=== PATIENT | female | born 1985 | race Caucasian/White ===

== ENCOUNTER 2017-08-14 12:40 | Emergency (ER) | payer BC, MEDICAID ==
--- NOTE | 2017-08-14 12:51 | ED Physician Documentation ---
PD HPI OVERDOSE - Stated complaint Stated Complaint: OVERDOSE - Chief complaint Chief Complaint: MHE - History obtained from History obtained from: Patient - History of Present Illness Timing - onset: How many hours ago (1 /2), Today Subtance(s) ingested: Single (benzo, took about 8 mgs Xanax (10-17 of 0.5 mg tabs).), Benzo (these were not her medications, she took pills belonging to a friend, who calls [facility] here in the ED to report it as a theft.). No: EtOH Associated symptoms: Decreased responsiveness. No: Resp depression, Resp arrest Contributing factors: Depresssed (she says she was stressed and wanted to sleep for a day or so, took extra of them "but not the whole bottle, just enough to sleep a long time". She denies suicidality. She then was concerned about taking too many so called for help.). No: Suicidal, Accidental, Substance abuse Similar symptoms before: Has not had sx before Recently seen: Not recently seen Review of Systems Constitutional: denies: Fever Nose: denies: Rhinorrhea / runny nose, Congestion Throat: denies: Sore throat Cardiac: denies: Chest pain / pressure, Palpitations Respiratory: denies: Dyspnea, Cough, Wheezing GI: denies: Nausea, Vomiting, Diarrhea Neurologic: denies: Altered mental status, Headache, Head injury PD PAST MEDICAL HISTORY - Past Medical History Cardiovascular: None Respiratory: None Neuro: None Endocrine/Autoimmune: None PRODUCTION FLOATER: Endometriosis Psych: Depression, Anxiety - Past Surgical History Past Surgical History: Yes /PRODUCTION FLOATER: Oophrectomy HEENT: Tonsil/Adenoidectomy - Present Medications Home Medications: Ambulatory Orders Medication Instructions Recorded Confirmed No Known Home Medications [No 08/14/17 08/14/17 Known Home Medications] - Allergies Allergies/Adverse Reactions: Allergies Allergy/AdvReac Type Severity Reaction Status Date / Time No Known Drug Allergies Allergy Verified 08/14/17 12:45 - Social History Does the pt smoke?: No Smoking Status: Never smoker Does the pt drink ETOH?: No Does the pt have substance abuse?: No - Immunizations Immunizations are current?: Yes - POLST Patient has POLST: No PD ED PE NORMAL - Vitals Vital signs reviewed: Yes (good oxygen sats. ) - General General: No: Alert and oriented X 3 (sleepy bout rousable to tactile stimulus. Gag reflex present. ) - HEENT HEENT: Ears normal, Pharynx benign - Neck Neck: Supple, no meningeal sign, No adenopathy - Cardiac Cardiac: RRR, No murmur - Respiratory Respiratory: Clear bilaterally - Abdomen Abdomen: Soft, Non tender - Derm Derm: Normal color, Warm and dry - Extremities Extremities: No tenderness to palpate, Normal ROM s pain, No edema, No calf tenderness / cord - Psych Psych: No: Normal mood (depressed) Results - Vitals Vitals: Oxygen O2 Source Room air - EKG (time done) 12:00 Rate: Rate (enter#) (81) Rhythm: NSR [place]: Normal Intervals: Normal PA QRS: Normal Ischemia: Normal ST segments. No: ST elevation c/w ischemia, ST depression - Labs Labs: Laboratory Tests 08/14/17 08/14/17 08/14/17 14:30 14:30 14:30 WBC 8.1 RBC 4.39 Hgb 10.7 L Hct 32.9 L MCV 75.0 L MCH 24.5 L MCHC 32.6 RDW 17.3 H Plt Count 299 MPV 8.3 Neut # 5.1 Lymph # 2.4 [place] # 0.5 Eos # 0.1 Baso # 0.1 Absolute Nucleated RBC 0.00 Nucleated RBC % 0.0 Sodium 134 L Potassium 3.3 L Chloride 103 Carbon Dioxide 22 Anion Gap 9.0 BUN 9 Creatinine 0.4 Estimated GFR (MDRD) 185 Glucose 85 Calcium 8.7 Total Bilirubin 0.4 AST 15 ALT 15 Alkaline Phosphatase 33 L Total Protein 6.9 Albumin 3.8 Globulin 3.1 Albumin/Globulin Ratio 1.2 Lipase 14 L TSH 0.16 L Urine Color Urine Clarity Urine pH Ur Specific [place] Urine Protein Urine Glucose (UA) Urine Ketones Urine Occult Blood Urine Nitrite Urine Bilirubin Urine Urobilinogen Ur Leukocyte Esterase Ur Microscopic Review Urine Culture Comments Urine HCG, Qual Salicylates < 6.0 Urine Opiates Screen Ur Oxycodone Screen Urine Methadone Screen Ur Propoxyphene Screen Acetaminophen < 10 L Ur Barbiturates Screen Ur Tricyclics Screen Ur Phencyclidine Scrn Ur Amphetamine Screen U Methamphetamines Scrn U Benzodiazepines Scrn Urine Cocaine Screen U Cannabinoids Screen Ethyl Alcohol < 5.0 08/14/17 08/14/17 17:49 17:49 WBC RBC Hgb Hct MCV MCH MCHC RDW Plt Count MPV Neut # Lymph # [place] # Eos # Baso # Absolute Nucleated RBC Nucleated RBC % Sodium Potassium Chloride Carbon Dioxide Anion Gap BUN Creatinine Estimated GFR (MDRD) Glucose Calcium Total Bilirubin AST ALT Alkaline Phosphatase Total Protein Albumin Globulin Albumin/Globulin Ratio Lipase TSH Urine Color YELLOW Urine Clarity CLEAR Urine pH 6.0 Ur Specific [place] 1.015 Urine Protein NEGATIVE Urine Glucose (UA) NEGATIVE Urine Ketones NEGATIVE Urine Occult Blood NEGATIVE Urine Nitrite NEGATIVE Urine Bilirubin NEGATIVE Urine Urobilinogen 0.2 (NORMAL) Ur Leukocyte Esterase NEGATIVE Ur Microscopic Review NOT INDICATED Urine Culture Comments NOT INDICATED Urine HCG, Qual POSITIVE Salicylates Urine Opiates Screen NEGATIVE Ur Oxycodone Screen NEGATIVE Urine Methadone Screen NEGATIVE Ur Propoxyphene Screen NEGATIVE Acetaminophen Ur Barbiturates Screen NEGATIVE Ur Tricyclics Screen NEGATIVE Ur Phencyclidine Scrn NEGATIVE Ur Amphetamine Screen POSITIVE H U Methamphetamines Scrn POSITIVE H U Benzodiazepines Scrn POSITIVE H Urine Cocaine Screen NEGATIVE U Cannabinoids Screen NEGATIVE Ethyl Alcohol PD MEDICAL DECISION MAKING - ED course Complexity details: considered differential (was not intending suicide. [place] stressed and wanted to "check out for a day". She did not get overly sedated, kept good oygenation and gag reflex. Slept awhile and then roused enough to be able to walk to bathroom/etc. SW talked with her and gave information for counseling groups for her to deal with stress differently. ), d/w patient Departure - Departure Disposition: 01 Home, Self Care Clinical Impression: Depression Qualifiers: Depression Type: unspecified Qualified Code(s): F32.9 - Major depressive disorder, single episode, unspecified Medication overdose Qualifiers: Encounter type: initial encounter Injury intent: undetermined intent Qualified Code(s): T50.904A - Poisoning by unspecified drugs, medicaments and biological substances, undetermined, initial encounter Clinical Impression: (Ruled Out): Suicidal ideation Condition: Stable Record reviewed to determine appropriate education?: Yes Instructions: ED Stress React, ED Depression, ED Overdose Intentional Follow-Up: Anahi Manzano MD [Primary Care Provider] - [facility] [Provider Group] Comments: Drink lots of fluids and stay well-hydrated. No medications beyond those prescribed for you. Call the counseling resource numbers provided by social work to set up counseling. He can call the crisis line if needed as well if you need someone to talk to acutely. Discharge Date/Time: 08/14/17 18:39
[2017-08-14] MEDS ORDERED: SODIUM CHLORIDE 0.9% 1,000 ML IV ONE (13:14)
[2017-08-14 14:37] LABS: BASOPHILS # (AUTO) 0.1 10^3/uL (0.0-0.1); BASOPHILS % (AUTO) 0.9 %; EOSINOPHILS # (AUTO) 0.1 10^3/uL (0.0-0.7); EOSINOPHILS % (AUTO) 0.9 %; HGB - HEMOGLOBIN 10.7 g/dL (12.0-16.0); LYMPHOCYTES # (AUTO) 2.4 10^3/uL (1.5-3.5); LYMPHOCYTES % (AUTO) 29.9 %; MEAN CORPUSCULAR HEMOGLOBIN 24.5 pg (27.0-31.0); MEAN CORPUSCULAR HGB CONC 32.6 g/dL (32.0-36.0); MEAN PLATELET VOLUME 8.3 fL (7.9-10.8); MONOCYTES # (AUTO) 0.5 10^3/uL (0.0-1.0); MONOCYTES % (AUTO) 5.7 %; NEUTROPHILS # (AUTO) 5.1 10^3/uL (1.5-6.6); NEUTROPHILS % (AUTO) 62.6 %; PLT - PLATELET COUNT 299 10^3/uL (130-450); RED BLOOD COUNT 4.39 10^6/uL (4.20-5.40); RED CELL DISTRIBUTION WIDTH 17.3 % (12.0-15.0); WHITE BLOOD COUNT 8.1 x10^3/uL (4.8-10.8)
[2017-08-14 14:51] LABS: ALBUMIN 3.8 g/dL (3.2-5.5); ALBUMIN/GLOBULIN RATIO 1.2 (1.0-2.2); ALKALINE PHOSPHATASE 33 IU/L (42-121); ALT ALANINE AMINOTRANSFERASE 15 IU/L (10-60); AST ASPARTATE AMINOTRANSFERASE 15 IU/L (10-42); BILIRUBIN,TOTAL 0.4 mg/dL (0.2-1.0); BUN - BLOOD UREA NITROGEN 9 mg/dL (6-20); CALCIUM 8.7 mg/dL (8.5-10.3); CARBON DIOXIDE - CO2 22 mmol/L (21-32); CHLORIDE 103 mmol/L (101-111); CREATININE 0.4 mg/dL (0.4-1.0); GFR - MDRD 185 (>89); GLUCOSE 85 mg/dL (70-100); LIPASE 14 U/L (22-51); SALICYLATE < 6.0 mg/dL; SODIUM 134 mmol/L (135-145); TOTAL PROTEIN 6.9 g/dL (6.7-8.2)
[2017-08-14 14:52] LABS: ACETAMINOPHEN < 10 ug/mL (10-30)
[2017-08-14 17:36] VITALS: BP 114/62
[2017-08-14 17:53] LABS: MUDS CUTOFF CONCENTRATIONS CUTOFF CONC BELOW:
[2017-08-14 17:56] LABS: BILIRUBIN,URINE NEGATIVE (NEGATIVE); GLUCOSE, URINE (UA) NEGATIVE (NEGATIVE); KETONES,URINE (UA) NEGATIVE (NEGATIVE); LEUKOCYTE ESTERASE, URINE NEGATIVE (NEGATIVE); NITRITE,URINE NEGATIVE (NEGATIVE); OCCULT BLOOD,URINE NEGATIVE (NEGATIVE); PROTEIN,URINE NEGATIVE (NEGATIVE); UROBILINOGEN,URINE 0.2 (NORMAL) E.U./dL (NORMAL)
[2017-08-14 17:59] LABS: CLARITY,URINE CLEAR (CLEAR)
[2017-08-14 18:06] LABS: COCAINE SCREEN URINE NEGATIVE (NEGATIVE)
[2017-08-14 18:08] LABS: AMPHETAMINE SCREEN,URINE POSITIVE (NEGATIVE); BENZODIAZEPINES SCREEN, URINE POSITIVE (NEGATIVE); METHADONE SCREEN, URINE NEGATIVE (NEGATIVE); METHAMPHETAMINES SCREEN, URINE POSITIVE (NEGATIVE); OPIATE SCREEN, URINE NEGATIVE (NEGATIVE); OXYCODONE SCREEN, URINE NEGATIVE (NEGATIVE); PROPOXYPHENE SCREEN, URINE NEGATIVE (NEGATIVE); TRICYCLIC ANTIDEPRESSANT,URINE NEGATIVE (NEGATIVE)
[2017-08-14 18:09] LABS: HCG UR QUAL POSITIVE
== END 2017-08-14 18:39 | disposition home or self-care (01) ==
LOC: ED 12:40
DX: F32.9 Major depressive disorder, single episode, unspecified (principal); T42.4X4A Poisoning by benzodiazepines, undetermined, initial encounter
CPT/HCPCS: 36415; 80053; 80306; 80307; 80320; 80329; 81001; 81003; 81025; 83690; 84443; 85025; 87086; 93005; 99283; 99284

== ENCOUNTER 2017-12-31 01:54 | Emergency (ER) | payer MEDICAID ==
--- NOTE | 2017-12-31 02:12 | ED Physician Documentation ---
History of Present Illness - Stated complaint Stated Complaint: L LEG PAIN - Chief complaint Chief Complaint: Ext Problem - History obtained from History obtained from: Patient - History of Present Illness Timing: How many days ago (2-3) Pain level now: 3 Improved by: rest Worsened by: movement, palpation - Additonal information Additional information: c/o few days of LLE pain, swelling without injury. 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 SLEEPING CAR: Endometriosis Psych: Depression, Anxiety - Past Surgical History Past Surgical History: Yes /CONDUCTOR SLEEPING CAR: Oophrectomy HEENT: Tonsil/Adenoidectomy - Present Medications Home Medications: Ambulatory Orders Medication Instructions Recorded Confirmed No Known Home Medications [No 08/14/17 12/31/17 Known Home Medications] - Allergies Allergies/Adverse Reactions: Allergies Allergy/AdvReac Type Severity Reaction Status Date / Time No Known Drug Allergies Allergy Verified 12/31/17 02:06 - Social History Does the pt smoke?: No Smoking Status: Never smoker Does the pt drink ETOH?: No Does the pt have substance abuse?: No - Immunizations Immunizations are current?: Yes - POLST Patient has POLST: No PD ED PE NORMAL - Vitals Vital signs reviewed: Yes - General General: Alert and oriented X 3, No acute distress, Well developed/nourished - Respiratory Respiratory: No respiratory distress, Clear bilaterally PD ED PE EXPANDED - Extremities Extremities: Pedal edema L (mild with faint erythema lateral aspect lower leg with poor margination, nontender) Results - Vitals Vitals: Vital Signs - 24 hr 12/31/17 12/31/17 02:00 04:40 Temperature 36.5 C Heart Rate 95 82 Respiratory 18 16 Rate Blood Pressure 123/62 123/71 O2 Saturation 100 99 Oxygen O2 Source Room air - Rads (name of study) LLE US Radiology: Prelim report reviewed, See rad report PD MEDICAL DECISION MAKING - ED course Complexity details: reviewed results, re-evaluated patient, considered differential, d/w patient - Sepsis Event Vital Signs: Vital Signs - 24 hr 12/31/17 12/31/17 02:00 04:40 Temperature 36.5 C Heart Rate 95 82 Respiratory 18 16 Rate Blood Pressure 123/62 123/71 O2 Saturation 100 99 Oxygen O2 Source Room air Departure - Departure Disposition: 01 Home, Self Care Clinical Impression: Superficial thrombophlebitis Condition: Good Instructions: ED Phlebitis Superficial Comments: Follow up with your primary care provider within 1-2 weeks for recheck of your leg. Discharge Date/Time: 12/31/17 04:40
--- NOTE | 2017-12-31 04:02 | Ultrasound Report ---
Procedure Date: 12/31/2017 Accession Number: [id number] / [id number] Procedure: US - Duplex Ext Veins Left CPT Code: FULL RESULT: EXAM: LEFT LOWER EXTREMITY VENOUS ULTRASOUND EXAM DATE: 12/31/2017 03:52 AM. CLINICAL HISTORY: Pain, swelling. COMPARISON: None. TECHNIQUE: Real-time sonographic vascular imaging was performed by the patient accounting representative through the lower extremity utilizing both color-flow and Doppler spectral analysis. Multiple digital media representative static images were saved for review. FINDINGS: Common Femoral Vein (CFV): Normal. CFV-GSV Junction: Normal. Profunda Femoral Vein (PFV): Normal. Femoral Vein (FV) Prox: Normal. Femoral Vein (FV) Mid: Normal. Femoral Vein (FV) Dist: Normal. Popliteal Vein: Normal. Posterior Tibial Veins: Normal. Peroneal Veins: Normal. Other: Thrombosed superficial varicosity in the lateral calf. IMPRESSION: 1. No evidence for deep venous thrombosis. 2. Thrombosed superficial varicosity at the palpable area in the lateral calf. RADIA
[2017-12-31 04:41] VITALS: BP 123/71
== END 2017-12-31 04:40 | disposition home or self-care (01) ==
LOC: ED 01:54
DX: I80.02 Phlebitis and thrombophlebitis of superficial vessels of left lower extremity (principal); I83.892 Varicose veins of left lower extremity with other complications
CPT/HCPCS: 99282; 99283

== ENCOUNTER 2018-02-22 01:03 | Outpatient (CLI) | payer MEDICAID | END 2018-02-22 01:04 | disposition critical access hospital (66) | LOC: EMS 01:03 | PROVIDERS: ATTEND Surgery | DX: O99.89 Other specified diseases and conditions complicating pregnancy, childbirth and the puerperium (principal) | CPT/HCPCS: A0425; A0429; A0999 ==

== ENCOUNTER 2018-02-22 01:36 | Inpatient (IN) | payer MEDICAID ==
[2018-02-22] MEDS ORDERED: OXYTOCIN/SODIUM CHLORIDE 500 ML IV ONE (01:48)
[2018-02-22] MEDS ORDERED: OXYTOCIN/SODIUM CHLORIDE 250 ML IV ONE (02:17)
[2018-02-22 02:47] LABS: ALBUMIN 2.4 g/dL (3.2-5.5); ALBUMIN/GLOBULIN RATIO 0.8 (1.0-2.2); BILIRUBIN,TOTAL 0.5 mg/dL (0.2-1.0); CALCIUM 8.5 mg/dL (8.5-10.3); CREATININE 0.5 mg/dL (0.4-1.0); TOTAL PROTEIN 5.6 g/dL (6.7-8.2)
[2018-02-22 02:51] LABS: BASOPHILS # (AUTO) 0.1 10^3/uL (0.0-0.1); BASOPHILS % (AUTO) 0.5 %; EOSINOPHILS % (AUTO) 0.3 %; HGB - HEMOGLOBIN 8.3 g/dL (12.0-16.0); LYMPHOCYTES # (AUTO) 2.1 10^3/uL (1.5-3.5); LYMPHOCYTES % (AUTO) 19.4 %; MEAN CORPUSCULAR HEMOGLOBIN 19.4 pg (27.0-31.0); MEAN CORPUSCULAR VOLUME 62.7 fL (81.0-99.0); MEAN PLATELET VOLUME 9.3 fL (7.9-10.8); MONOCYTES # (AUTO) 0.4 10^3/uL (0.0-1.0); MONOCYTES % (AUTO) 3.8 %; NEUTROPHILS # (AUTO) 8.1 10^3/uL (1.5-6.6); PLT - PLATELET COUNT 230 10^3/uL (130-450); RED BLOOD COUNT 4.25 10^6/uL (4.20-5.40); WHITE BLOOD COUNT 10.7 x10^3/uL (4.8-10.8)
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
[2018-02-22] MEDS ORDERED: HYDROCORTISONE/PRAMOXINE 10 GM PR PRN (03:27)
[2018-02-22] MEDS ORDERED: ONDANSETRON ODT 4 MG TABLET TL PRN (03:27)
[2018-02-22] MEDS ORDERED: WITCH HAZEL/GLYCERIN 1 EACH MED..PAD TOP PRN (03:27)
[2018-02-22 03:34] LABS: PLATELET ESTIMATE, MANUAL NORMAL (130-450,000) (NORMAL)
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
[2018-02-22] MEDS ORDERED: LACTATED RINGERS 1,000 ML IV SCH (04:00)
[2018-02-22] MEDS: IBUPROFEN 600 MG TABLET PO PRN ×3 (04:08→21:41)
[2018-02-22] MEDS ORDERED: SIMETHICONE CHEW 80 MG TABLET PO SCH (06:00)
[2018-02-22 06:04] LABS: MUDS CUTOFF CONCENTRATIONS CUTOFF CONC BELOW:
[2018-02-22 06:17] LABS: AMPHETAMINE SCREEN,URINE POSITIVE (NEGATIVE); BENZODIAZEPINES SCREEN, URINE NEGATIVE (NEGATIVE); COCAINE SCREEN URINE NEGATIVE (NEGATIVE); METHADONE SCREEN, URINE NEGATIVE (NEGATIVE); METHAMPHETAMINES SCREEN, URINE POSITIVE (NEGATIVE); OPIATE SCREEN, URINE NEGATIVE (NEGATIVE); OXYCODONE SCREEN, URINE NEGATIVE (NEGATIVE); PROPOXYPHENE SCREEN, URINE NEGATIVE (NEGATIVE); TRICYCLIC ANTIDEPRESSANT,URINE NEGATIVE (NEGATIVE)
[2018-02-22 07:12] LABS: CREATININE,URINE 90.1 mg/dL; MICROALBUM/CREATININE RATIO,UR 3633.7 ug/mg (<30.0); MICROALBUMIN,URINE 327.4 mg/dL (0-300.0)
[2018-02-22 08:47] LABS: CREATININE,URINE 84.6 mg/dL; PROTEIN/CREATININE RATIO,URINE 5.8 (<=0.2)
[2018-02-22] MEDS ORDERED: MAGNESIUM SULFATE 1 GM/2 ML VIAL IVP PRN (09:54)
[2018-02-22] MEDS ORDERED: MAGNESIUM SULFATE 2 GRAM 2 GM/50 ML BAG IV PRN (10:12)
[2018-02-22] MEDS: DOCUSATE SODIUM 100 MG CAPSULE PO SCH ×2 (10:15→21:41)
[2018-02-22 11:49] LABS: CALCIUM 8.3 mg/dL (8.5-10.3); CREATININE 0.5 mg/dL (0.4-1.0)
[2018-02-22 11:52] LABS: BASOPHILS # (AUTO) 0.1 10^3/uL (0.0-0.1); BASOPHILS % (AUTO) 0.8 %; EOSINOPHILS % (AUTO) 0.2 %; HGB - HEMOGLOBIN 7.9 g/dL (12.0-16.0); LYMPHOCYTES # (AUTO) 2.8 10^3/uL (1.5-3.5); LYMPHOCYTES % (AUTO) 21.4 %; MEAN CORPUSCULAR HEMOGLOBIN 19.1 pg (27.0-31.0); MEAN CORPUSCULAR HGB CONC 30.8 g/dL (32.0-36.0); MEAN CORPUSCULAR VOLUME 62.2 fL (81.0-99.0); MEAN PLATELET VOLUME 9.4 fL (7.9-10.8); MONOCYTES # (AUTO) 0.5 10^3/uL (0.0-1.0); MONOCYTES % (AUTO) 4.2 %; NEUTROPHILS # (AUTO) 9.4 10^3/uL (1.5-6.6); NEUTROPHILS % (AUTO) 73.4 %; PLT - PLATELET COUNT 225 10^3/uL (130-450); RED BLOOD COUNT 4.15 10^6/uL (4.20-5.40); RED CELL DISTRIBUTION WIDTH 20.3 % (12.0-15.0); WHITE BLOOD COUNT 12.8 x10^3/uL (4.8-10.8)
[2018-02-22 12:25] LABS: PLATELET MORPHOLOGY NORMAL APPEARANCE (NORMAL)
[2018-02-22 12:26] LABS: PLATELET ESTIMATE, MANUAL NORMAL (130-450,000) (NORMAL)
[2018-02-22 12:29] LABS: ALBUMIN 2.2 g/dL (3.2-5.5); BILIRUBIN,DIRECT 0.1 mg/dL (0.1-0.5); BILIRUBIN,TOTAL 0.3 mg/dL (0.2-1.0); TOTAL PROTEIN 5.4 g/dL (6.7-8.2)
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
[2018-02-22 13:55] LABS: MEAN RETIC VALUE 95.4; RED BLOOD COUNT 4.14 10^6/uL (4.20-5.40)
[2018-02-22 14:07] LABS: FERRITIN 11.3 ng/mL (11.0-306.8)
[2018-02-22 14:11] LABS: FOLATE 14.73 ng/mL (5.90 - >24.8)
--- NOTE | 2018-02-22 14:12 | CONSULTATION NOTE ---
Referring Provider Name of Referring Provider:: Dr. Mary Ann Mota Consult Date: 02/22/18 Chief Complaint - Chief Complaint Chief Complaint: anemia History of Present Illness - History Obtained From History obtained from: pt - History of Present Illness HPI Comment/Other: Ms. 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 Pt's HGB was 8.3 at admission, pt's HGB is 7.9 after she delivered child. Pt report she had hx of chronic anemia, and usually her HGB is around 10. She reported she took iron pill at home. She denies shortness of breath, chest pain, palpitation, pre-syncope or syncope. She denies GI bleed prior to her this time deliver. Pt also has slight elevated WBC 12.8 today and 10.8 in the admission time. Pt denies dysuria, cough, fever, chill, and any skin infection, abdominal pain, diarrhea. Pt report she did have some kind of chronic right ear infection, and slight elevated WBC in the past. pt denies ear pain, hearing loss. 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: reports: Endometriosis Psych: reports: Depression, Anxiety MRSA Hx?: No - Past Surgical History /COLLEGE ADMINISTRATOR: reports: Oophrectomy HEENT: reports: Tonsil/Adenoidectomy - POLST Patient has POLST: No Meds/Allgy - Home Medications Home Medications: Ambulatory Orders Medication Instructions Recorded Confirmed No Known Home Medications 08/14/17 12/31/17 - Allergies Allergies/Adverse Reactions: Allergies Allergy/AdvReac Type Severity Reaction Status Date / Time No Known Drug Allergies Allergy Verified 12/31/17 02:06 Review of Systems - Constitutional Constitutional: denies: Fatigue, Fever, Chills, Malaise, Weakness, Poor appetite, Diaphoresis, Night sweats - Eyes Eyes: denies: Pain, Irritation, Amaurosis, Blurred vision, Spots in vision, Field loss, Vision loss, Dipolpia, Corrective lenses - Ears, Nose & Throat Ears, Nose & Throat: denies: Ear pain, Hearing loss, Hearing aids, Tinnitus, Vertigo, Nasal pain, Nasal discharge, Nosebleeds, Nasal obstruction, Nasal congestion, Postnasal drainage, Dentures, Sore throat, Hoarseness, Mouth lesions - Cardiovascular Cariovascular: denies: Irregular heart rate, Palpitations, Chest pain, Edema, Lightheadedness, Syncope, Exertional dyspnea, Decr. exercise tolerance - Respiratory Respiratory: denies: Cough, Sputum production, Wheezing, Snoring, Hemoptysis, Orthopnea, SOB at rest, SOB with exertion - Gastrointestinal Gastrointestinal: denies: Abdominal pain, Abdominal distention, Constipation, Diarrhea, Change in bowel habits, Rectal bleeding, Black stools, Bloody stools, Nausea, Vomiting, Bile emesis, Esa blood emesis, Coffee grounds emesis, Reflux/heartburn - Genitourinary Genitourinary: denies: Dysuria, Frequency, Urgency, Hematuria, Incontinence, Flank pain, Nocturia, Urethral discharge - Musculoskeletal Musculoskeletal: denies: Muscle pain, Back pain, Muscle aches, Stiffness, Limited range of motion, Muscle weakness, Gout, Joint pain - Integumentary Integumentary: denies: Rash, Pruritis, Lesions, Dryness, Lumps, Acne, Pigment changes, Nail changes - Neurological Neurological: denies: General weakness, Focal weakness, Headache, Dizziness, Numbness, Memory problems, Pre-existing deficit, Abnormal gait, Seizures, Incoordination, Slurred speech - Psychiatric Psychiatric: denies: Depression, Anxiety, Suicidal, Delusions, Hallucinations, Homicidal - Endocrine Endocrine: denies: Polyuria, Polydypsia, Polyphagia, Intolerance to cold - Hematologic/Lymphatic Hematologic/Lymphatic: reports: Anemia. denies: Bruising, Petechiae, Blood clots, Lymphadenopathy, Bleeding tendencies, Recurrent infections Exam - Vital Signs Reviewed Vital Signs: Yes Vital Signs: Vital Signs x48h Temp Pulse Resp BP Pulse Ox 02/22/18 13:30 37.1 C 61 16 126/60 99 02/22/18 10:53 91 16 131/77 H 99 02/22/18 08:50 36.7 C 73 18 125/79 100 02/22/18 06:21 36.5 C 60 16 136/76 H - Physical Exam General Appearance: negative: No acute distress, Alert, Lethargic Eyes Bilateral: positive: Normal inspection, PERRL. negative: No lid inflammation, Conjunctivae nml ENT: positive: ENT inspection nml, Pharynx nml, No signs of dehydration. negative: Purulent nasal drainage, Pharyngeal erythema, Oral lesions Neck: positive: Nml inspection, Thyroid nml, No JVD, Trachea midline. negative: Thyromegaly, Lymphadenopathy (R), Lymphadenopathy (L), Stiff neck, Swelling/bruising, Tracheal deviation Respiratory: positive: Chest non-tender, No respiratory distress, Breath sounds nml. negative: Wheezes, Rales, Rhonchi Cardiovascular: positive: Regular rate & rhythm, No murmur, No gallop. negative: Irregularly irregular, Extrasystoles, Tachycardia, Bradycardia, JVD present, Systolic murmur, Diastolic murmur Peripheral Pulses: positive: 2+ Abdomen: positive: Non-tender, No organomegaly, Nml bowel sounds, No distention. negative: Tenderness, Guarding, Rebound Back: positive: Nml inspection. negative: CVA tenderness (R), CVA tenderness (L) Skin: positive: Color nml, No rash, Warm, Dry. negative: Cyanosis, Diaphoresis, Pallor, Skin rash Extremities: positive: Non-tender, Full ROM, Nml appearance. negative: Calf tenderness, Joint swelling, Bo's sign/cords Neurologic/Psychiatric: positive: Oriented x3, Motor nml, Sensation nml, Mood/affect nml. negative: Weakness, Sensory loss, Facial droop, Slurred/abnml speech, Depressed mood/affect Conclusion/Plan - Plan Plan: 1, anemia MCV is 63, it appear iron deficiency, plus mild acute blood loss from child deliver will order iron study, followup start iron pill, pt took at home before H&H, pt has child deliver today 2, slight elevated WBC pt report she had chronic slight elevated WBC, plus pt's child deliver distress. pt denies fever, chill, cough, SOB, dysuria. continue lab monitor, followup - Lab Results Fish Bones: 02/22/18 11:30 02/22/18 11:30
[2018-02-22 14:27] LABS: % IRON SATURATION 6 % (20-50); IRON 33 ug/dL (28-170); TOTAL IRON BINDING CAPACITY 578 ug/dL (250-450); TRANSFERRIN 413 mg/dL (192-382)
[2018-02-22] MEDS ORDERED: FERROUS SULFATE 325 MG TABLET PO SCH (17:00)
[2018-02-22] MEDS ORDERED: CABERGOLINE 0.5 MG TABLET PO ONE (17:33)
[2018-02-22 19:06] LABS: HGB - HEMOGLOBIN 7.6 g/dL (12.0-16.0)
[2018-02-23] MEDS: IBUPROFEN 600 MG TABLET PO PRN (04:26)
[2018-02-23 06:17] LABS: ALBUMIN 2.1 g/dL (3.2-5.5); ALBUMIN/GLOBULIN RATIO 0.7 (1.0-2.2); ALKALINE PHOSPHATASE 98 IU/L (42-121); ALT ALANINE AMINOTRANSFERASE < 10 IU/L (10-60); AST ASPARTATE AMINOTRANSFERASE 17 IU/L (10-42); BILIRUBIN,TOTAL 0.4 mg/dL (0.2-1.0); BUN - BLOOD UREA NITROGEN 10 mg/dL (6-20); CALCIUM 8.4 mg/dL (8.5-10.3); CARBON DIOXIDE - CO2 23 mmol/L (21-32); CHLORIDE 109 mmol/L (101-111); CREATININE 0.4 mg/dL (0.4-1.0); GFR - MDRD 184 (>89); GLUCOSE 86 mg/dL (70-100); MAGNESIUM 1.6 mg/dL (1.7-2.8); SODIUM 139 mmol/L (135-145)
[2018-02-23 06:18] LABS: BASOPHILS # (AUTO) 0.1 10^3/uL (0.0-0.1); BASOPHILS % (AUTO) 0.6 %; EOSINOPHILS # (AUTO) 0.1 10^3/uL (0.0-0.7); EOSINOPHILS % (AUTO) 0.6 %; HGB - HEMOGLOBIN 7.5 g/dL (12.0-16.0); LYMPHOCYTES # (AUTO) 4.1 10^3/uL (1.5-3.5); LYMPHOCYTES % (AUTO) 31.6 %; MEAN CORPUSCULAR HEMOGLOBIN 19.1 pg (27.0-31.0); MEAN CORPUSCULAR HGB CONC 29.9 g/dL (32.0-36.0); MEAN CORPUSCULAR VOLUME 63.8 fL (81.0-99.0); MEAN PLATELET VOLUME 8.8 fL (7.9-10.8); MONOCYTES # (AUTO) 0.6 10^3/uL (0.0-1.0); MONOCYTES % (AUTO) 4.5 %; NEUTROPHILS # (AUTO) 8.2 10^3/uL (1.5-6.6); NEUTROPHILS % (AUTO) 62.7 %; PLT - PLATELET COUNT 199 10^3/uL (130-450); RED BLOOD COUNT 3.95 10^6/uL (4.20-5.40)
[2018-02-23 06:39] LABS: PLATELET ESTIMATE, MANUAL NORMAL (130-450,000) (NORMAL)
[2018-02-23] MEDS ORDERED: CYANOCOBALAMIN 1,000 MCG/ML VIAL IM ONE (08:03)
[2018-02-23] MEDS ORDERED: MAGNESIUM SULFATE 1 GM in SODIUM CHLORIDE 0.9% 50 ML IV ONE (09:00)
[2018-02-23] MEDS ORDERED: CYANOCOBALAMIN 500 MCG TABLET PO SCH (09:00)
[2018-02-23] MEDS ORDERED: FERROUS SULFATE 325 MG TABLET PO SCH (09:00)
[2018-02-23] MEDS: DOCUSATE SODIUM 100 MG CAPSULE PO SCH (09:19)
--- NOTE | 2018-02-23 10:39 | Discharge Plan ---
Discharge Plan Disposition: Home, Self Care Condition: Fair Prescriptions: Ibuprofen [Motrin] 600 mg PO Q6HR PRN #30 tablet PRN Reason: Abdominal Pain Cholecalciferol [Vitamin D3] 5,000 unit PO DAILY #90 capsule Cyanocobalamin (Vitamin B-12) [Vitamin B-12 (500 mcg sublingual)] 500 mcg SL CHRISTINA LY #90 tab.subl Docusate Sodium 100 mg PO BID PRN #60 capsule PRN Reason: to soften stool Iron Polysaccharide Complex [Pro Fe] 180 mg PO DAILY #90 capsule Diet: Regular Activity Restrictions: No Restrictions Shower Restrictions: No Driving Restrictions: No Additional Instructions or Follow Up instructions: See labor and delivery handouts SEE YOUR PRIMARY CARE DOCTOR MARTIN to coordinate care for your ongoing medical problems: ankylosing spondylitis, anemia, vitamin deficiency, etc. Follow up at [facility] in 1 week for a preoperative exam for sterilization. We can sterilize you (tie your tubes) 6 weeks after . No Smoking: If you smoke, Please STOP! Call for help.
--- NOTE | 2018-02-23 10:58 | PROVIDER PROGRESS NOTE ---
Objective - Vital Signs/Intake & Output Vital Signs: Vital Signs x48h Temp Pulse Resp BP Pulse Ox 02/23/18 10:00 112/60 02/23/18 08:44 98.1 F 83 18 114/62 97 02/23/18 06:09 98 F 63 16 102/54 L 99 Intake & Output: Intake & Output 02/20/18 02/21/18 02/22/18 02/23/18 23:59 23:59 23:59 23:59 Output Total 580 Balance -580 - Lab Results Fish Bones: 02/23/18 05:40 02/23/18 05:40 Other Labs: Lab Results x24hrs 02/23/18 02/23/18 02/22/18 Range/Units 05:40 05:40 19:00 WBC 13.0 H (4.8-10.8) x10^3/uL RBC 3.95 L (4.20-5.40) 10^6/uL Hgb 7.5 L 7.6 L (12.0-16.0) g/dL Hct 25.2 L 24.6 L (37.0-47.0) % MCV 63.8 L (81.0-99.0) fL MCH 19.1 L (27.0-31.0) pg MCHC 29.9 L (32.0-36.0) g/dL RDW 20.0 H (12.0-15.0) % Plt Count 199 (130-450) 10^3/uL MPV 8.8 (7.9-10.8) fL Reticulocyte % (Auto) (0.5-2.3) % Neut # (Auto) 8.2 H (1.5-6.6) 10^3/uL Lymph # (Auto) 4.1 H (1.5-3.5) 10^3/uL [place] # (Auto) 0.6 (0.0-1.0) 10^3/uL Eos # (Auto) 0.1 (0.0-0.7) 10^3/uL Baso # (Auto) 0.1 (0.0-0.1) 10^3/uL Absolute Nucleated RBC 0.05 x10^3/uL Nucleated RBC % 0.4 /100WBC Manual Slide Review Indicated WBC Morphology (NORMAL) Platelet Estimate NORMAL (130-450,000) (NORMAL) Platelet Morphology (NORMAL) RBC Morph Micro Appear 1+ ANISOCYTOSIS (NORMAL) Absolute Retic (0.020-0.110) 10^6/uL Sodium 139 (135-145) mmol/L Potassium 4.2 (3.5-5.0) mmol/L Chloride 109 (101-111) mmol/L Carbon Dioxide 23 (21-32) mmol/L Anion Gap 7.0 (6-13) BUN 10 (6-20) mg/dL Creatinine 0.4 (0.4-1.0) mg/dL Estimated GFR (MDRD) 184 (>89) Glucose 86 (70-100) mg/dL Calcium 8.4 L (8.5-10.3) mg/dL Magnesium 1.6 L (1.7-2.8) mg/dL Iron (28-170) ug/dL TIBC (250-450) ug/dL % Saturation (20-50) % Transferrin (192-382) mg/dL Ferritin (11.0-306.8) ng/mL Total Bilirubin 0.4 (0.2-1.0) mg/dL Direct Bilirubin (0.1-0.5) mg/dL AST 17 (10-42) IU/L ALT < 10 L (10-60) IU/L Alkaline Phosphatase 98 (42-121) IU/L Lactate Dehydrogenase (91-225) IU/L Total Protein 5.0 L (6.7-8.2) g/dL Albumin 2.1 L (3.2-5.5) g/dL Globulin 2.9 (2.1-4.2) g/dL Albumin/Globulin Ratio 0.7 L (1.0-2.2) Vitamin B12 (180-914) pg/mL Folate (5.90 - >24.8) ng/mL Rubella IgG Antibody IU/mL 02/22/18 02/22/18 02/22/18 Range/Units 11:30 11:30 11:30 WBC (4.8-10.8) x10^3/uL RBC 4.14 L (4.20-5.40) 10^6/uL Hgb (12.0-16.0) g/dL Hct (37.0-47.0) % MCV (81.0-99.0) fL MCH (27.0-31.0) pg MCHC (32.0-36.0) g/dL RDW (12.0-15.0) % Plt Count (130-450) 10^3/uL MPV (7.9-10.8) fL Reticulocyte % (Auto) 2.70 H (0.5-2.3) % Neut # (Auto) (1.5-6.6) 10^3/uL Lymph # (Auto) (1.5-3.5) 10^3/uL [place] # (Auto) (0.0-1.0) 10^3/uL Eos # (Auto) (0.0-0.7) 10^3/uL Baso # (Auto) (0.0-0.1) 10^3/uL Absolute Nucleated RBC x10^3/uL Nucleated RBC % /100WBC Manual Slide Review WBC Morphology (NORMAL) Platelet Estimate (NORMAL) Platelet Morphology (NORMAL) RBC Morph Micro Appear (NORMAL) Absolute Retic 0.112 H (0.020-0.110) 10^6/uL Sodium (135-145) mmol/L Potassium (3.5-5.0) mmol/L Chloride (101-111) mmol/L Carbon Dioxide (21-32) mmol/L Anion Gap (6-13) BUN (6-20) mg/dL Creatinine (0.4-1.0) mg/dL Estimated GFR (MDRD) (>89) Glucose (70-100) mg/dL Calcium (8.5-10.3) mg/dL Magnesium (1.7-2.8) mg/dL Iron (28-170) ug/dL TIBC (250-450) ug/dL % Saturation (20-50) % Transferrin (192-382) mg/dL Ferritin 11.3 (11.0-306.8) ng/mL Total Bilirubin (0.2-1.0) mg/dL Direct Bilirubin (0.1-0.5) mg/dL AST (10-42) IU/L ALT (10-60) IU/L Alkaline Phosphatase (42-121) IU/L Lactate Dehydrogenase 193 (91-225) IU/L Total Protein (6.7-8.2) g/dL Albumin (3.2-5.5) g/dL Globulin (2.1-4.2) g/dL Albumin/Globulin Ratio (1.0-2.2) Vitamin B12 90 L (180-914) pg/mL Folate 14.73 (5.90 - >24.8) ng/mL Rubella IgG Antibody IU/mL 02/22/18 02/22/18 02/22/18 Range/Units 11:30 11:30 11:30 WBC (4.8-10.8) x10^3/uL RBC (4.20-5.40) 10^6/uL Hgb (12.0-16.0) g/dL Hct (37.0-47.0) % MCV (81.0-99.0) fL MCH (27.0-31.0) pg MCHC (32.0-36.0) g/dL RDW (12.0-15.0) % Plt Count (130-450) 10^3/uL MPV (7.9-10.8) fL Reticulocyte % (Auto) (0.5-2.3) % Neut # (Auto) (1.5-6.6) 10^3/uL Lymph # (Auto) (1.5-3.5) 10^3/uL [place] # (Auto) (0.0-1.0) 10^3/uL Eos # (Auto) (0.0-0.7) 10^3/uL Baso # (Auto) (0.0-0.1) 10^3/uL Absolute Nucleated RBC x10^3/uL Nucleated RBC % /100WBC Manual Slide Review WBC Morphology (NORMAL) Platelet Estimate (NORMAL) Platelet Morphology (NORMAL) RBC Morph Micro Appear (NORMAL) Absolute Retic (0.020-0.110) 10^6/uL Sodium (135-145) mmol/L Potassium (3.5-5.0) mmol/L Chloride (101-111) mmol/L Carbon Dioxide (21-32) mmol/L Anion Gap (6-13) BUN (6-20) mg/dL Creatinine (0.4-1.0) mg/dL Estimated GFR (MDRD) (>89) Glucose (70-100) mg/dL Calcium (8.5-10.3) mg/dL Magnesium (1.7-2.8) mg/dL Iron 33 (28-170) ug/dL TIBC 578 H (250-450) ug/dL % Saturation 6 L (20-50) % Transferrin 413 H (192-382) mg/dL Ferritin (11.0-306.8) ng/mL Total Bilirubin 0.3 (0.2-1.0) mg/dL Direct Bilirubin 0.1 (0.1-0.5) mg/dL AST 23 (10-42) IU/L ALT 10 (10-60) IU/L Alkaline Phosphatase 135 H (42-121) IU/L Lactate Dehydrogenase (91-225) IU/L Total Protein 5.4 L (6.7-8.2) g/dL Albumin 2.2 L (3.2-5.5) g/dL Globulin 3.2 (2.1-4.2) g/dL Albumin/Globulin Ratio (1.0-2.2) Vitamin B12 (180-914) pg/mL Folate (5.90 - >24.8) ng/mL Rubella IgG Antibody 17.8 IU/mL 02/22/18 02/22/18 Range/Units 11:30 11:30 WBC 12.8 H (4.8-10.8) x10^3/uL RBC 4.15 L (4.20-5.40) 10^6/uL Hgb 7.9 L (12.0-16.0) g/dL Hct 25.8 L (37.0-47.0) % MCV 62.2 L (81.0-99.0) fL MCH 19.1 L (27.0-31.0) pg MCHC 30.8 L (32.0-36.0) g/dL RDW 20.3 H (12.0-15.0) % Plt Count 225 (130-450) 10^3/uL MPV 9.4 (7.9-10.8) fL Reticulocyte % (Auto) (0.5-2.3) % Neut # (Auto) 9.4 H (1.5-6.6) 10^3/uL Lymph # (Auto) 2.8 (1.5-3.5) 10^3/uL [place] # (Auto) 0.5 (0.0-1.0) 10^3/uL Eos # (Auto) 0.0 (0.0-0.7) 10^3/uL Baso # (Auto) 0.1 (0.0-0.1) 10^3/uL Absolute Nucleated RBC 0.01 x10^3/uL Nucleated RBC % 0.1 /100WBC Manual Slide Review Indicated WBC Morphology NORMAL APPEARANCE (NORMAL) Platelet Estimate NORMAL (130-450,000) (NORMAL) Platelet Morphology NORMAL APPEARANCE (NORMAL) RBC Morph Micro Appear 2+ HYPOCHROMASIA (NORMAL) Absolute Retic (0.020-0.110) 10^6/uL Sodium 136 (135-145) mmol/L Potassium 4.1 (3.5-5.0) mmol/L Chloride 109 (101-111) mmol/L Carbon Dioxide 21 (21-32) mmol/L Anion Gap 6.0 (6-13) BUN 10 (6-20) mg/dL Creatinine 0.5 (0.4-1.0) mg/dL Estimated GFR (MDRD) 142 (>89) Glucose 114 H (70-100) mg/dL Calcium 8.3 L (8.5-10.3) mg/dL Magnesium (1.7-2.8) mg/dL Iron (28-170) ug/dL TIBC (250-450) ug/dL % Saturation (20-50) % Transferrin (192-382) mg/dL Ferritin (11.0-306.8) ng/mL Total Bilirubin (0.2-1.0) mg/dL Direct Bilirubin (0.1-0.5) mg/dL AST (10-42) IU/L ALT (10-60) IU/L Alkaline Phosphatase (42-121) IU/L Lactate Dehydrogenase (91-225) IU/L Total Protein (6.7-8.2) g/dL Albumin (3.2-5.5) g/dL Globulin (2.1-4.2) g/dL Albumin/Globulin Ratio (1.0-2.2) Vitamin B12 (180-914) pg/mL Folate (5.90 - >24.8) ng/mL Rubella IgG Antibody IU/mL Assessment/Plan - Problem List (1) Vaginal delivery Impression: Physically doing well. Discharge to rooming in . See discharge summary (2) Social problem Impression: CPS investigation is ongoing. Undergoing mental health eval today. (3) Positive urine drug screen Impression: Baby's urine was + as well. CPS investigation and they are helping to coordinate rehab services. (4) Anemia of chronic disease Impression: from ankylosing spondylitis, deficient diet (substance abuse, eating mountain dew and cheetos here), low normal iron levels, B12 deficiency. D/w internal med. Will do IM B12 and IV iron as pt states that she could take pills but pt has been noncompliant with her care. Pt is open to receiving parenteral care here. f/u with PCP. (5) Pre-eclampsia affecting childbirth Impression: Stable, no SX, BPs improving. (6) Encounter for counseling regarding contraception Impression: Methods discussed, pt really wants to be sterilized, is amenable to depo provera shot prior to sterilization. Given. (7) Sterilization consult Impression: Tubal papers signed, f/u for preop in 1w (9) Ankylosing spondylitis Impression: Chronic condition, could be contributing to her chronic anemia. F/u with PCP. Qualifiers: Ankylosing spondylitis location: unspecified site of spine Qualified Code(s): M45.9 - Ankylosing spondylitis of unspecified sites in spine (10) Vitamin D deficiency Impression: 13 in the past w/o replacement. Gave a large dose of D3 today, 50,000IU, as pt is likely not to be compliant with ongoing po replacement. See discharge summary for entire history, exam, and plan for today.
[2018-02-23] MEDS ORDERED: CHOLECALCIFEROL 5,000 UNIT CAPSULE PO SCH (11:00)
[2018-02-23] MEDS ORDERED: FERRIC GLUCONATE 62.5 MG/5 ML VIAL IVP ONE (11:22)
[2018-02-23] MEDS ORDERED: TETANUS/DIPHTHERIA/PERTUSSIS 0.5 ML SYRINGE IM ONE (11:24)
[2018-02-23] MEDS ORDERED: FERRIC GLUCONATE 125 MG in SODIUM CHLORIDE 0.9% 100ML 100 ML IV ONE (12:00)
[2018-02-23 12:35] VITALS: BP 142/78
[2018-02-23] MEDS ORDERED: FERRIC GLUCONATE 62.5 MG/5 ML VIAL ONE (12:53)
[2018-02-23] MEDS ORDERED: SODIUM CHLORIDE FLUSH 0.9% 10 ML SYRINGE ONE (12:54)
[2018-02-23 13:07] LABS: HEPATITIS B SURFACE ANTIGEN NON-REACTIVE (NON-REACTIVE)
[2018-02-23 13:07] LABS: HEPATITIS C ANTIBODY NON-REACTIVE (NON-REACTIVE)
[2018-02-23 13:19] LABS: HGB - HEMOGLOBIN 7.9 g/dL (12.0-16.0)
--- NOTE | 2018-02-23 13:28 | DISCHARGE SUMMARY ---
Physician: Mary Ann Mota MD DATE OF ADMISSION: 02/22/2018 DATE OF DISCHARGE: 02/23/2018 ADMISSION DIAGNOSES: 1. Labor at term. 2. Elevated blood pressure. DISCHARGE DIAGNOSES: 1. Status post vaginal delivery. 2. Pre-eclampsia without severe features. 3. Substance abuse, methamphetamines. 4. Noncompliant with care and no care. 5. Social problems. 6. Chronic anemia, likely anemia of chronic disease. 7. Ankylosing spondylitis. 8. Vitamin B12 deficiency. 9. Vitamin D deficiency. 10. Contraception counseling. 11. Sterilization consult. PROCEDURES: 02/22/2018, spontaneous vaginal delivery of a liveborn female, uncomplicated, with a 100 mL blood loss. HOSPITAL COURSE: 1. The patient was admitted in active spontaneous labor. She delivered within a half an hour of arr ival to the hospital. From a and intrapartum standpoint, she did well. By day 1, she was requesting discharge home. She was eating, ambulating, and urinating without difficulty. She had not yet had a bowel movement, but did not feel constipated. She described her mood as good . She did not have any heavy bleeding or significant pain. She will be sent home with routine postp artum instructions. 2. Social problems: The patient describes having care; however, we could not find any obje ctive documentation of this. We did draw her new OB lab work, and most of the studies are still pend ing. She is rubella immune. We will give her a flu vaccine and a Tdap prior to discharge. The otilia ent also is supervised by [facility] and does have custody of her current children at home. The patient yumiko rey positive for amphetamines and so did the baby. [facility] is conducting an investigation, undergoing a mental health status evaluation, and they will help to coordinate addiction services for Rohini. 3. Pre-eclampsia without severe features: On admission, the patient did have very elevated blood pr essures, but she was also actively delivering. In the immediate 2 hours , she persisted in having blood pressures mostly in the mild range. Her blood pressures have come down over time with occasionally elevated blood pressures at this time, but most in the normal range. Her only elevated blood pressures are in the mild range. She never had symptoms of pre-eclampsia, including headache, visual changes, or upper abdominal pain. Her urine protein to creatinine ratio was very high at 5. She maintained normal platelets, AST, and ALT. She was advised that she has an increased risk for hy pertension and for cardiac disease throughout her life and that she should seek ongoing primary care to mediate this. If she has symptoms of pre-eclampsia, she needs to present immediately to the ER, a s sometimes pre-eclampsia can worsen following delivery. 3. Anemia and vitamin deficiencies: The patient's hematocrit at admission was 26. She was very harvey rocytic and had abnormal red blood cell shapes seen. Internal Medicine was consulted. Vitamin B12 d eficiency was found, and she received IM supplementation for this. She will also go home on oral sup plementation. Her iron levels were very low normal, and in this noncompliant patient, we decided to give IV iron, and she will go home on oral iron as well. Her vitamin D was replaced with inpatient a nd then outpatient treatment as well. The patient was advised that a significant degree of her anemi a could be from chronic disease from her ankylosing spondylitis, for which she has not received recen t care. We recommended ongoing primary care followup and possible hematology-oncology followup if he r anemia persists. 5. Contraception counseling: The patient has expressed desire to have no more children. She is cur rently estranged from her and is not sexually active. She was amenable to getting a Depo-Pro vera shot to cover her for the next 3 months. She is also wanting to get her tubes tied. [facility] ion consent form papers were signed with me on 02/23/2018. A copy was given to the patient. She claude uld follow up in 1 week for a tubal consult in clinic. OUTSTANDING LABORATORIES: HIV, hepatitis B, hepatitis C, gonorrhea, and chlamydia. DISCHARGE DISPOSITION: Home. CONDITION: Fair. DISCHARGE MEDICATIONS: 1. Ibuprofen p.r.n. pain. 2. Vitamin D3 at 5000 international units daily. 3. Vitamin B12 at 500 mcg sublingual daily. 4. Colace 100 mg p.o. b.i.d. p.r.n. to soften stool. 5. Pro Fe 180 mg p.o. daily. FOLLOWUP: In 1 week would [facility] and in 1 week with primary care doctor. DISCHARGE INSTRUCTIONS: Routine instructions given. The patient will be discharged to a rooming and [facility], as her baby will be observed for a few more days for any withdrawal symptoms. TD: 02/23/2018 12:06
[2018-02-23 14:22] LABS: HIV AG/AB 4TH GEN NON-REACTIVE (NON-REACTIVE)
--- NOTE | 2018-02-23 19:04 | Labor Flowsheet ---
Labor Flowsheet Datetime Report Generated by CPN: 02/23/2018 19:04 Datetime: 02/23/2018 12:25 VITAL SIGNS NBP Sys/Josefa/Mean (mmHg): 142 : 78 : 92 Pulse: 67 Datetime: 02/23/2018 07:58 SpO2 (%): 98
== END 2018-02-23 15:00 | disposition home or self-care (01) | DRG 775 ==
LOC: WFO 01:36 → FBP 01:37
PROVIDERS: ADMIT Obstetrics & Gynecology; ATTEND Obstetrics & Gynecology
PROC: 10E0XZZ Delivery of Products of Conception, External Approach (ICD-10-PCS; principal; 2018-02-22)
DX: O14.04 Mild to moderate pre-eclampsia, complicating childbirth (principal); D62 Acute posthemorrhagic anemia; Z37.0 Single live birth; O62.3 Precipitate labor; O36.63X0 Maternal care for excessive fetal growth, third trimester, not applicable or unspecified; O99.324 Drug use complicating childbirth; F15.10 Other stimulant abuse, uncomplicated; O99.02 Anemia complicating childbirth; D50.8 Other iron deficiency anemias; D63.8 Anemia in other chronic diseases classified elsewhere; D51.9 Vitamin B12 deficiency anemia, unspecified; O99.89 Other specified diseases and conditions complicating pregnancy, childbirth and the puerperium; M45.9 Ankylosing spondylitis of unspecified sites in spine; O99.284 Endocrine, nutritional and metabolic diseases complicating childbirth; E55.9 Vitamin D deficiency, unspecified; O99.344 Other mental disorders complicating childbirth; F32.9 Major depressive disorder, single episode, unspecified; F41.9 Anxiety disorder, unspecified; O22.23 Superficial thrombophlebitis in pregnancy, third trimester; I80.03 Phlebitis and thrombophlebitis of superficial vessels of lower extremities, bilateral; Z77.22 Contact with and (suspected) exposure to environmental tobacco smoke (acute) (chronic); Z91.5 Personal history of self-harm; Z86.11 Personal history of tuberculosis; Z3A.38 38 weeks gestation of pregnancy; Z91.19 Patient's noncompliance with other medical treatment and regimen; Z91.419 Personal history of unspecified adult abuse
CPT/HCPCS: 36415; 80048; 80053; 80076; 80306; 81599; 82043; 82570; 82607; 82728; 82746; 83540; 83615; 83735; 84156; 84466; 85014; 85018; 85025; 85044; 86340; 86762; 86780; 86803; 87340; 87389; 87491; 87591; 90686; 99213

== ENCOUNTER 2018-03-09 11:40 | Emergency (ER) | payer MEDICAID ==
[2018-03-09 12:24] LABS: BASOPHILS # (AUTO) 0.1 10^3/uL (0.0-0.1); BASOPHILS % (AUTO) 0.6 %; EOSINOPHILS # (AUTO) 0.1 10^3/uL (0.0-0.7); EOSINOPHILS % (AUTO) 0.6 %; LYMPHOCYTES # (AUTO) 2.2 10^3/uL (1.5-3.5); LYMPHOCYTES % (AUTO) 16.8 %; MEAN CORPUSCULAR HEMOGLOBIN 20.5 pg (27.0-31.0); MEAN CORPUSCULAR HGB CONC 31.1 g/dL (32.0-36.0); MEAN CORPUSCULAR VOLUME 65.9 fL (81.0-99.0); MEAN PLATELET VOLUME 8.5 fL (7.9-10.8); MONOCYTES # (AUTO) 0.6 10^3/uL (0.0-1.0); MONOCYTES % (AUTO) 4.6 %; NEUTROPHILS # (AUTO) 10.1 10^3/uL (1.5-6.6); NEUTROPHILS % (AUTO) 77.4 %; PLT - PLATELET COUNT 388 10^3/uL (130-450); RED BLOOD COUNT 4.88 10^6/uL (4.20-5.40); RED CELL DISTRIBUTION WIDTH 25.4 % (12.0-15.0)
[2018-03-09 12:33] LABS: BILIRUBIN,URINE NEGATIVE (NEGATIVE); GLUCOSE, URINE (UA) NEGATIVE (NEGATIVE); KETONES,URINE (UA) NEGATIVE (NEGATIVE); LEUKOCYTE ESTERASE, URINE NEGATIVE (NEGATIVE); NITRITE,URINE NEGATIVE (NEGATIVE); OCCULT BLOOD,URINE MODERATE (NEGATIVE); PROTEIN,URINE NEGATIVE (NEGATIVE); UROBILINOGEN,URINE 0.2 (NORMAL) E.U./dL (NORMAL)
[2018-03-09 12:36] LABS: ALBUMIN 3.7 g/dL (3.2-5.5); ALBUMIN/GLOBULIN RATIO 1.1 (1.0-2.2); BILIRUBIN,TOTAL 0.7 mg/dL (0.2-1.0); CALCIUM 8.4 mg/dL (8.5-10.3); CREATININE 0.6 mg/dL (0.4-1.0); TOTAL PROTEIN 7.2 g/dL (6.7-8.2)
[2018-03-09 12:37] LABS: CLARITY,URINE CLEAR (CLEAR); HCG UR QUAL NEGATIVE
[2018-03-09 12:52] LABS: BACTERIA,URINE Rare /HPF (None Seen); RBC,URINE 0-5 /HPF (0-5); SQUAMOUS EPITHELIAL CELL,UR MOD Squamous (<= Few)
[2018-03-09 12:55] LABS: PLATELET ESTIMATE, MANUAL NORMAL (130-450,000) (NORMAL)
[2018-03-09 12:56] LABS: PLATELET MORPHOLOGY NORMAL APPEARANCE (NORMAL)
[2018-03-09] MEDS ORDERED: CEFEPIME 1 GM in SODIUM CHLORIDE 0.9% MINIBAG 100 ML IV STA (12:56)
--- NOTE | 2018-03-09 13:05 | ED Physician Documentation ---
PD HPI SKIN - Stated complaint Stated Complaint: FACE SWELLING/REDNESS - Chief complaint Chief Complaint: Wound - History obtained from History obtained from: Patient - History of Present Illness Timing - onset: Today Timing - duration: Hours Timing - details: Gradual onset, Still present Location: Face Quality / character: Itchy, Painful, Burning, Swelling Associated symptoms: Facial swelling Similar symptoms before: Diagnosis (facial cellulitis) Recently seen: Admitted - Additional information Additional information: 33-year-old female who is 2 weeks has developed acute redness and swelling to her face similar to what she has had previous to the facial cellulitis. She has had sepsis associated with this 3 years ago and this was found to be related to a Pseudomonas organism as well as strep and she required hospitalization for 4 days. She has subsequently had a second infection in which she received a single dose of cefepime. She has developed symptoms this morning of redness at the bottom of her jaw that has now risen to the upper cheek below the eye. Review of Systems Constitutional: reports: Chills, Fatigue. 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: Endometriosis Psych: Depression, Anxiety - Past Surgical History Past Surgical History: Yes /SOAKING PIT OPERATOR: Oophrectomy HEENT: Tonsil/Adenoidectomy - Present Medications Home Medications: Ambulatory Orders Medication Instructions Recorded Confirmed Cholecalciferol [Vitamin D3] 5,000 unit PO DAILY #90 capsule 02/23/18 Cyanocobalamin (Vitamin B-12) 500 mcg SL DAILY #90 tab.subl 02/23/18 [Vitamin B-12 (500 mcg sublingual)] Docusate Sodium 100 mg PO BID PRN #60 capsule 02/23/18 Ibuprofen [Motrin] 600 mg PO Q6HR PRN #30 tablet 02/23/18 Iron Polysaccharide Complex [Pro 180 mg PO DAILY #90 capsule 02/23/18 Fe] Ciprofloxacin HCl [Cipro] 500 mg PO BID #14 tablet 03/09/18 Mupirocin Calcium [Bactroban] 1 gm TP BID #15 cream..g. 03/09/18 - Allergies Allergies/Adverse Reactions: Allergies Allergy/AdvReac Type Severity Reaction Status Date / Time No Known Drug Allergies Allergy Verified 03/09/18 11:47 - Social History Does the pt smoke?: No Smoking Status: Never smoker Does the pt drink ETOH?: No Does the pt have substance abuse?: No - Immunizations Immunizations are current?: Yes - POLST Patient has POLST: No PD ED PE NORMAL - Vitals Vital signs reviewed: Yes (hypertensive mild ) - General General: Alert and oriented X 3, No acute distress, Well developed/nourished - HEENT HEENT: Atraumatic, PERRL, EOMI, Other (both canals have dry flaking skin consistent with the psoriasis the patient has. There inflamation of the TM of both ears as well. There is obvious swelling and erythema to the left side of the face from the jaw line to the eye and from the nasalabial fold to the anterior ear. ) - Neck Neck: Supple, no meningeal sign, No bony TTP - Cardiac Cardiac: RRR, No murmur - Respiratory Respiratory: No respiratory distress, Clear bilaterally - Abdomen Abdomen: Soft, Non tender - Back Back: No CVA TTP, No spinal TTP - Derm Derm: Normal color, Warm and dry - Extremities Extremities: No deformity, No edema - Neuro Neuro: Alert and oriented X 3, simulation specialist 2-12 intact, No motor deficit, No sensory deficit, Normal speech Eye Opening: Spontaneous Motor: Obeys Commands Verbal: Oriented GCS Score: 15 - Psych Psych: Normal mood, Normal affect Results - Vitals Vitals: Vital Signs - 24 hr 03/09/18 11:41 Temperature 36.7 C Heart Rate 93 Respiratory 16 Rate Blood Pressure 141/76 H O2 Saturation 100 Oxygen O2 Source Room air - Labs Labs: Laboratory Tests 03/09/18 03/09/18 03/09/18 11:50 12:14 12:14 WBC 13.0 H RBC 4.88 Hgb 10.0 L Hct 32.2 L MCV 65.9 L MCH 20.5 L MCHC 31.1 L RDW 25.4 H Plt Count 388 MPV 8.5 Neut # (Auto) 10.1 H Lymph # (Auto) 2.2 [place] # (Auto) 0.6 Eos # (Auto) 0.1 Baso # (Auto) 0.1 Absolute Nucleated RBC 0.00 Nucleated RBC % 0.0 Manual Slide Review Indicated Platelet Estimate NORMAL (130-450,000) Platelet Morphology NORMAL APPEARANCE RBC Morph Micro Appear 2+ MICROCYTOSIS Sodium 138 Potassium 3.6 Chloride 106 Carbon Dioxide 22 Anion Gap 10.0 BUN 12 Creatinine 0.6 Estimated GFR (MDRD) 115 Glucose 85 Calcium 8.4 L Total Bilirubin 0.7 AST 18 ALT 13 Alkaline Phosphatase 60 Total Protein 7.2 Albumin 3.7 Globulin 3.5 Albumin/Globulin Ratio 1.1 Lipase 33 Urine Color YELLOW Urine Clarity CLEAR Urine pH 6.0 Ur Specific [place] 1.020 Urine Protein NEGATIVE Urine Glucose (UA) NEGATIVE Urine Ketones NEGATIVE Urine Occult Blood MODERATE H Urine Nitrite NEGATIVE Urine Bilirubin NEGATIVE Urine Urobilinogen 0.2 (NORMAL) Ur Leukocyte Esterase NEGATIVE Urine RBC 0-5 Urine WBC 0-3 Ur Squamous Epith Cells MOD Squamous H Urine Bacteria Rare Ur Microscopic Review INDICATED Urine Culture Comments NOT INDICATED Urine HCG, Qual NEGATIVE PD MEDICAL DECISION MAKING - ED course Complexity details: reviewed results, re-evaluated patient, considered differential, d/w patient ED course: 33 y/o female with facial cellulitis has a history of pseudomonas and she is given a dose of IV cefepime and we will start her on some Cipro and bactroban as these have worked for her before. - Sepsis Event Vital Signs: Vital Signs - 24 hr 03/09/18 11:41 Temperature 36.7 C Heart Rate 93 Respiratory 16 Rate Blood Pressure 141/76 H O2 Saturation 100 Oxygen O2 Source Room air Departure - Departure Disposition: 01 Home, Self Care Clinical Impression: Facial cellulitis Condition: Stable Instructions: ED Cellulitis Facial Follow-Up: [facility] [Provider Group] [facility] [Provider Group] Prescriptions: Ciprofloxacin HCl [Cipro] 500 mg PO BID #14 tablet Mupirocin Calcium [Bactroban] 1 gm TP BID #15 cream..g.
[2018-03-09 14:06] VITALS: BP 127/85
== END 2018-03-09 14:43 | disposition home or self-care (01) ==
LOC: ED 11:40
DX: O99.89 Other specified diseases and conditions complicating pregnancy, childbirth and the puerperium (principal); L03.211 Cellulitis of face; Z87.898 Personal history of other specified conditions
CPT/HCPCS: 36415; 80053; 81001; 81003; 81025; 83690; 85025; 87040; 87086; 96365; 99283

== ENCOUNTER 2020-10-30 02:06 | Emergency (ER) | payer MEDICAID ==
--- OUTSIDE RECORDS SUMMARY | 2020-10-30 02:27 | EXTERNAL MEDICAL SUMMARY RPT | Continuity of Care Document ---
:1985 Demographics Phone Unavailable Preferred Language Unknown Marital Status Unknown Confucianism Affiliation Unknown Race Unknown Ethnic Group Unknown Author Organization [place] Address [address] [place] [address] Phone Allergies Encounters Medications Problems Results
[2020-10-30] MEDS ORDERED: levoFLOXacin 250 MG TABLET PO STA (02:29)
[2020-10-30] MEDS ORDERED: CEFEPIME 1 GM in SODIUM CHLORIDE 0.9% MINIBAG 100 ML IV STA (02:29)
--- NOTE | 2020-10-30 03:15 | ED Physician Documentation ---
PD HPI HEENT - Stated complaint Stated Complaint: R EAR PX - Chief complaint Chief Complaint: Heent - History obtained from History obtained from: Patient - Additional information Additional information: Patient comes emergency department chief complaint of right ear and facial swelling and pain for the last 2 to 3 days. Patient states she has had this before where she begins to feel a pain in her jaw and then her entire right face and ear puff up. Patient states that she has been on antibiotics before, and has been told she has a strain of Pseudomonas in her ear or on her skin. Patient states that she has occasionally had a sense of chills, but no fever measured. No nausea or vomiting. No hearing compromise. No recent swimming. Patient does not feel that this started in her tooth. Not a diabetic. Review of Systems Ten Systems: 10 systems reviewed and negative Constitutional: reports: Reviewed and negative Eyes: reports: Reviewed and negative Ears: reports: Ear pain, Reviewed and negative Nose: reports: Reviewed and negative Throat: denies: Dental pain / toothache, Sore throat Cardiac: reports: Reviewed and negative Respiratory: reports: Reviewed and negative GI: reports: Reviewed and negative : reports: Reviewed and negative Skin: reports: Reviewed and negative Musculoskeletal: reports: Reviewed and negative Neurologic: reports: Reviewed and negative Psychiatric: reports: Reviewed and negative Endocrine: reports: Reviewed and negative Immunocompromised: reports: Reviewed and negative PD PAST MEDICAL HISTORY - Past Medical History Past Medical History: Yes 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 Psych: Depression, Anxiety - Past Surgical History Past Surgical History: Yes Ortho: Other /POLICE OR PATROL PARK OFFICER: Oophrectomy HEENT: Tonsil/Adenoidectomy - Present Medications Home Medications: Ambulatory Orders Medication Instructions Recorded Confirmed Levofloxacin [Levaquin] 500 mg PO DAILY #10 tablet 10/30/20 Mupirocin 2% Oint [Bactroban 2% 1 applic TOP BID #22 gm 10/30/20 Oint] - Allergies Allergies/Adverse Reactions: Allergies Allergy/AdvReac Type Severity Reaction Status Date / Time No Known Drug Allergies Allergy Verified 10/30/20 02:14 - Social History Does the pt smoke?: No Smoking Status: Never smoker Does the pt drink ETOH?: No Does the pt have substance abuse?: No - Immunizations Immunizations are current?: Yes - POLST Patient has POLST: No PD ED PE NORMAL - Vitals Vital signs reviewed: Yes - General General: Alert and oriented X 3, No acute distress, Well developed/nourished - HEENT HEENT: Atraumatic, PERRL, Other (Moderately, diffusely edematous and slightly erythematous right ear, with spread of edema to right face. Right face is mildly edematous. Faint erythema also noted. No crepitus. No discharge in external canal.). No: Ears normal - Neck Neck: Supple, no meningeal sign - Cardiac Cardiac: RRR, No murmur - Respiratory Respiratory: Clear bilaterally - Derm Derm: Warm and dry, No rash, Other (Facial and ear erythema as noted above.) - Extremities Extremities: No deformity, No edema - Neuro Neuro: Alert and oriented X 3, financial institution manager 2-12 intact, Normal speech - Psych Psych: Normal mood, Normal affect Results - Vitals Vitals: Vital Signs - 24 hr 10/30/20 10/30/20 02:10 03:38 Temperature 98.2 C H 36.3 C L Heart Rate 101 H 92 Respiratory 18 18 Rate Blood Pressure 114/53 L 112/59 L O2 Saturation 100 100 Oxygen O2 Source Room air PD MEDICAL DECISION MAKING - ED course Complexity details: re-evaluated patient, considered differential, d/w patient ED course: I reviewed the patient's previous records and found she had been given a single dose of cefepime, as well as a course of fluoroquinolones. Patient reported that this along with the Bactroban had been quite helpful in clearing up her symptoms last time this happened. I gave the patient a dose of cefepime and started oral Levaquin. We have discussed home management and symptoms, as well as the usual indications for return. Departure - Departure Disposition: 01 Home, Self Care Clinical Impression: Cellulitis of right ear, Facial cellulitis Condition: Stable Instructions: ED Cellulitis Facial Prescriptions: Mupirocin 2% Oint [Bactroban 2% Oint] 1 applic TOP BID #22 gm Levofloxacin [Levaquin] 500 mg PO DAILY #10 tablet Discharge Date/Time: 10/30/20 03:40
[2020-10-30 03:39] VITALS: BP 112/59
== END 2020-10-30 03:40 | disposition home or self-care (01) ==
LOC: ED 02:06
DX: H60.11 Cellulitis of right external ear (principal); L03.211 Cellulitis of face
CPT/HCPCS: 96365; 99284; A9270

== ENCOUNTER 2020-11-14 01:56 | Emergency (ER) | payer MEDICAID ==
--- OUTSIDE RECORDS SUMMARY | 2020-11-14 01:59 | EXTERNAL MEDICAL SUMMARY RPT | Continuity of Care Document ---
:1985 Demographics Phone Unavailable Preferred Language Unknown Marital Status Unknown Sabianism Affiliation Unknown Race Unknown Ethnic Group Unknown Author Organization [place] Address [address] [place] [address] Phone Allergies Encounters Medications Problems Results
--- OUTSIDE RECORDS SUMMARY | 2020-11-14 02:00 | EXTERNAL MEDICAL SUMMARY RPT | Continuity of Care Document ---
:1985 Demographics Phone Unavailable Preferred Language Unknown Marital Status Unknown Hoahaoism Affiliation Unknown Race Unknown Ethnic Group Unknown Author Organization [place] Address [address] [place] [address] Phone Allergies Encounters Medications Problems Results
--- NOTE | 2020-11-14 02:12 | ED Physician Documentation ---
PD HPI HEENT - Stated complaint Stated Complaint: FACE SWELLING - Chief complaint Chief Complaint: General - History obtained from History obtained from: Patient - History of Present Illness Timing - onset: How many weeks ago (2) Timing - duration: Weeks (2) Timing - details: Gradual onset, Waxing and waning (had right ear pain and redness, extended to right face and cheek. Rx with IV dose abx here and Rx for Levaquin, given her prior history of cellulitis. She states improved next day from just the IV dose, so thought she did not need Rx. Was okay a week, and now worse again, same location on face.) Location: Right ear, Other (right cheek/lower lid swelling the past few days, worsening.). No: Sinuses, Tooth Improves: No: Medication (ibuprofen) Worsens: Other (palpation and facial movement.) Associated symptoms: Facial swelling. No: Fever, Congestion, Headache Similar symptoms before: Diagnosis (facial cellulitis, previously to pseudomonas from ear canal.) Recently seen: Emergency Dept (2 weeks ago) Review of Systems Constitutional: denies: Fever, Chills, Myalgias Ears: reports: Ear pain (right). 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 Psych: Depression, Anxiety - Past Surgical History Past Surgical History: Yes Ortho: Other /REHABILITATION NURSE: Oophrectomy HEENT: Tonsil/Adenoidectomy - Present Medications Home Medications: Ambulatory Orders Medication Instructions Recorded Confirmed Mupirocin 2% Oint [Bactroban 2% 1 applic TOP BID #22 gm 10/30/20 Oint] levoFLOXacin [Levaquin] 500 mg PO DAILY #10 tablet 10/30/20 Mupirocin Calcium [Mupirocin] 1 applic TP TID #15 gm 11/14/20 Naproxen [EC-Naproxen] 500 mg PO BID 7 Days #14 11/14/20 levoFLOXacin [Levaquin] 500 mg PO QD 7 Days #14 tablet 11/14/20 - Allergies Allergies/Adverse Reactions: Allergies Allergy/AdvReac Type Severity Reaction Status Date / Time No Known Drug Allergies Allergy Verified 11/14/20 02:00 - Social History Does the pt smoke?: No Smoking Status: Never smoker Does the pt drink ETOH?: No Does the pt have substance abuse?: No - Immunizations Immunizations are current?: Yes - POLST Patient has POLST: No PD ED PE NORMAL - Vitals Vital signs reviewed: Yes - General General: Alert and oriented X 3, No acute distress, Well developed/nourished - HEENT HEENT: PERRL, EOMI (without orbital pain), Ears normal, Pharynx benign, Dentition benign - Neck Neck: Supple, no meningeal sign, Other (right anterior adenopathy mild noted. ) - Cardiac Cardiac: RRR, No murmur - Respiratory Respiratory: Clear bilaterally - Derm Derm: Normal color, Warm and dry, Other (right cheek and up to lower part lower eyelid with redness, swelling, tender, without focal fluctuance. No gum swelling right side. Right TM normal as is canal right now. ) Results - Vitals Vitals: Vital Signs - 24 hr 11/14/20 11/14/20 02:00 02:41 Temperature 36.5 C 36.5 C Heart Rate 80 81 Respiratory 16 16 Rate Blood Pressure 109/84 H 110/83 H O2 Saturation 100 99 Oxygen O2 Source Room air PD MEDICAL DECISION MAKING - ED course Complexity details: reviewed old records, considered differential (right cheek and lower eyelid cellulitis, without abscess feeling. No dental gum swelling. Ear right appears normal. Will give Rx Levaquin as that seemed to help in the past.), d/w patient Departure - Departure Disposition: 01 Home, Self Care Clinical Impression: Facial cellulitis Condition: Stable Record reviewed to determine appropriate education?: Yes Instructions: ED Infec Skin Cellulitis Prescriptions: Naproxen [EC-Naproxen] 500 mg PO BID 7 Days #14 levoFLOXacin [Levaquin] 500 mg PO QD 7 Days #14 tablet Mupirocin Calcium [Mupirocin] 1 applic TP TID #15 gm Comments: Cleanse the area with soap and water 2-3 times dialy the apply mupirocin antibiotic ointment. Levaquin oral antibiotic daily for a week. Naproxen anti-inflammatory twice daily for a week for swelling and pain. Recheck if not improved well over 2-3 days and resolved by 3-5 days. Return if worsening. Discharge Date/Time: 11/14/20 02:41
[2020-11-14] MEDS ORDERED: levoFLOXacin 250 MG TABLET PO STA (02:27)
[2020-11-14] MEDS ORDERED: MUPIROCIN 2% OINT 1 GM TOP STA (02:27)
[2020-11-14] MEDS ORDERED: IBUPROFEN 600 MG TABLET PO STA (02:27)
[2020-11-14 02:43] VITALS: BP 110/83
== END 2020-11-14 02:41 | disposition home or self-care (01) ==
LOC: ED 01:56
DX: H00.032 Abscess of right lower eyelid (principal); L03.211 Cellulitis of face
CPT/HCPCS: 99283; 99284; A9270

== ENCOUNTER 2020-12-03 18:25 | Outpatient (CLI) | payer OTHER, MEDICAID ==
--- NOTE | 2020-12-03 19:06 | XRAY Report ---
PROCEDURE: Facial Bones Complete INDICATIONS: CONTUSION OF LEFT EYEBALL AND ORBITAL TISSUE TECHNIQUE: 5 views of the facial bones were acquired. COMPARISON: None FINDINGS: Sinuses: Visualized sinuses demonstrate no air-fluid levels or mucosal thickening. Bones: No fractures. No suspicious bony lesions. Orbital rims and zygomatic arches appear intact. Incidental comparison periodontal dental disease noted Soft tissues: No suspicious soft tissue densities. IMPRESSION: Unremarkable facial bone radiographs without evidence of fracture. Incidental carious and periodontal dental disease Reviewed by: Horacio Ying MD on 12/03/2020 6:04 PM JESS Approved by: Horacio Ying MD on 12/03/2020 6:04 PM AKLIVAN Station ID: [id number]
== END 2020-12-03 23:59 | disposition home or self-care (01) ==
LOC: DI.S 18:25
PROVIDERS: ATTEND Physician Assistant Medical
DX: S05.12XA Contusion of eyeball and orbital tissues, left eye, initial encounter (principal)

== ENCOUNTER 2021-09-07 19:02 | Outpatient (CLI) | payer MEDICAID | END 2021-09-07 19:03 | disposition EMS.NT | LOC: EDBD 19:02 → EMS 19:02 → MERGE 19:02 → EMS 19:03 | DX: R51.9 Headache, unspecified (principal); M25.572 Pain in left ankle and joints of left foot; S40.012A Contusion of left shoulder, initial encounter; S50.12XA Contusion of left forearm, initial encounter; Y04.2XXA Assault by strike against or bumped into by another person, initial encounter ==

== ENCOUNTER 2022-08-04 20:24 | Emergency (ER) | payer MEDICAID ==
[2022-08-04 20:32] VITALS: BP 149/80
== END 2022-08-04 23:11 | disposition left against medical advice (07) ==
LOC: ED 20:24
DX: Z53.29 Procedure and treatment not carried out because of patient's decision for other reasons (principal)

== ENCOUNTER 2022-08-21 02:22 | Emergency (ER) | payer MEDICAID ==
[2022-08-21 02:34] VITALS: BP 134/58
[2022-08-21] MEDS ORDERED: NEOMYCIN/POLYMYX/HC OTIC DROPS EACHEAR STA (02:53)
[2022-08-21] MEDS ORDERED: levoFLOXacin 250 MG TABLET PO STA (02:53)
--- NOTE | 2022-08-21 03:00 | ED Physician Documentation ---
PD HPI HEENT - Stated complaint Stated Complaint: FACIAL SWELLING - Chief complaint Chief Complaint: Heent - History obtained from History obtained from: Patient - Additional information Additional information: Patient is a 37-year-old female with a history of recurrent pseudomonal infections and facial cellulitis presenting for evaluation of redness and swelling to the right side of her face for the past 1 day. She reports having discomfort in bilateral ears for the past few days and it has since spread to her face today. 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 She has responded well to Levaquin in the past. Patient denies fever, chest pain, difficulty breathing, abdominal pain. She is not currently on antibiotics. She denies difficulty with vision or swallowing. Review of Systems Constitutional: denies: Fever Ears: reports: Ear pain Cardiac: denies: Chest pain / pressure Respiratory: denies: Dyspnea GI: denies: Abdominal Pain Skin: reports: Rash PD PAST MEDICAL HISTORY - Past Medical History Respiratory: None Neuro: None Endocrine/Autoimmune: None CLINICAL PROJECT COORDINATOR: Endometriosis Psych: Depression, Anxiety - Past Surgical History Past Surgical History: Yes Ortho: Other /CLINICAL PROJECT COORDINATOR: Oophrectomy HEENT: Tonsil/Adenoidectomy - Present Medications Home Medications: Ambulatory Orders Medication Instructions Recorded Confirmed Ciproflox/Dexameth Otic Drops 4 drops EACHEAR BID 7 Days #7.5 ml 08/21/22 [Ciprodex Otic Drops] levoFLOXacin [Levaquin] 500 mg PO BID 7 Days #28 tablet 08/21/22 - Allergies Allergies/Adverse Reactions: Allergies Allergy/AdvReac Type Severity Reaction Status Date / Time No Known Drug Allergies Allergy Verified 08/21/22 02:34 - Social History Does the pt smoke?: No Smoking Status: Never smoker Does the pt drink ETOH?: No Does the pt have substance abuse?: No - Immunizations Immunizations are current?: Yes - POLST Patient has POLST: No PD ED PE NORMAL - General General: Alert and oriented X 3, No acute distress, Well developed/nourished - HEENT HEENT: Atraumatic, PERRL, EOMI, Moist mucous membranes, Pharynx benign, Other (Redness and swelling to right face; No fluctuance). No: Ears normal (Bilateral external otitis R worse than L - Difficult to visualize TMs) - Neck Neck: Supple, no meningeal sign, No bony TTP - Cardiac Cardiac: RRR - Respiratory Respiratory: No respiratory distress, Clear bilaterally - Derm Derm: Other (Erythema to right Cheek, No oral swelling, no fluctuance) - Neuro Neuro: Normal speech Results - Vitals Vitals: Vital Signs - 24 hr 08/21/22 02:29 Temperature 36.7 C Heart Rate 82 Respiratory 19 Rate Blood Pressure 134/58 H O2 Saturation 100 Oxygen O2 Source Room air PD Medical Decision Making - ED course ED course: Patient presenting for evaluation of bilateral ear pain and redness and swelling to the right face. On exam she has bilateral external otitis and now facial cellulitis. Suspect Pseudomonas given her history. She is afebrile. She has responded well to Levaquin in the past. Vital signs are stable.No discrete abscess. No signs of Orbital cellulitis. We will also place on Otic drops and ear fatmata were placed bilaterally.Patient is advised on strict return preca utions for any worsening symptoms. Departure - Departure Disposition: 01 Home, Self Care Clinical Impression: Bilateral otitis externa, Facial cellulitis Condition: Stable Instructions: ED Cellulitis Facial, ED Otitis Externa Prescriptions: Ciproflox/Dexameth Otic Drops [Ciprodex Otic Drops] 4 drops EACHEAR BID 7 Days #7.5 ml levoFLOXacin [Levaquin] 500 mg PO BID 7 Days #28 tablet Comments: You have an infection to the skin of your face which likely started from bilateral ear infections. I am starting you on an oral antibiotic called Levaquin as well as eardrops for both ears. You should use these medications for the next 7 days. I Have sent these prescriptions to [facility] in [place]. If at anytime you have any worsening symptoms such as fever, increased redness or swelling or any new concerns please return to the emergency department Discharge Date/Time: 08/21/22 03:19
[2022-08-21] MEDS ORDERED: CIPROFLOX/DEXAMETH OTIC DROPS EACHEAR STA (03:01)
== END 2022-08-21 03:19 | disposition home or self-care (01) ==
LOC: ED 02:22
DX: R22.0 Localized swelling, mass and lump, head (principal); H60.93 Unspecified otitis externa, bilateral; L03.211 Cellulitis of face
CPT/HCPCS: 99282; 99283; A9270

== ENCOUNTER 2023-05-08 02:06 | Emergency (ER) | payer MEDICAID ==
[2023-05-08 02:20] VITALS: BP 148/83; O2SAT 98
[2023-05-08] MEDS ORDERED: levoFLOXacin 250 MG TABLET PO STA (02:31)
[2023-05-08] MEDS ORDERED: MUPIROCIN 2% OINT 1 GM TOP STA (02:31)
--- NOTE | 2023-05-08 02:34 | ED Physician Documentation ---
History of Present Illness - Stated complaint Stated Complaint: R EAR/CHEEK PX - Chief complaint Chief Complaint: Heent - History obtained from History obtained from: Patient - Additonal information Additional information: Patient is a 38-year-old female presenting for evaluation of redness and swelling to the right side of her pes that she noticed yesterday morning and has been worsening. She also reports having a discomfort in bilateral ears for the better part of the last month. She reports having a history of recurrent pseudomonal infections and facial cellulitis. She describes a history of psoriasis-like condition causing dryness and flaking and causing these recurrent infections. She did see ENT in the past but it has been several years. She has responded well to antibiotics including Levaquin in the past. She denies headache, fever, difficulty with swallowing or speech, changes to her vision or pain with eye movements. 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, Other Psych: Depression, Anxiety Musculoskeletal: Other Other Past Medical History: L Ovarian tumor; Ankylosis Spondilitis - Past Surgical History Past Surgical History: Yes Ortho: Other /MODEL HOME SALES GREETER: Oophrectomy HEENT: Tonsil/Adenoidectomy - Present Medications Home Medications: Ambulatory Orders Medication Instructions Recorded Confirmed Ciproflox/Dexameth Otic Drops 4 drops EACHEAR BID 7 Days #7.5 ml 05/08/23 [Ciprodex Otic Drops] Mupirocin 2% Oint [Bactroban 2% 1 applic TOP BID 7 Days #50 gm 05/08/23 Oint] levoFLOXacin [Levaquin] 500 mg PO QD 7 Days #14 tab 05/08/23 - Allergies Allergies/Adverse Reactions: Allergies Allergy/AdvReac Type Severity Reaction Status Date / Time No Known Drug Allergies Allergy Verified 05/08/23 02:18 - Social History Does the pt smoke?: No Smoking Status: Never smoker Does the pt drink ETOH?: No Does the pt have substance abuse?: No - Immunizations Immunizations are current?: Yes - POLST Patient has POLST: No PD ED PE NORMAL - General General: Alert and oriented X 3, No acute distress, Well developed/nourished - HEENT HEENT: Atraumatic, PERRL, EOMI, Other (Redness and indurations to right face with no fluctuance, no involvement of submandibular space). No: Ears normal (Bilateral external otitis, right canal is worse than left with limited visualization of TMs) - Neck Neck: Supple, no meningeal sign - Cardiac Cardiac: RRR - Respiratory Respiratory: No respiratory distress, Clear bilaterally - Derm Derm: Other (Erythema and induration over right cheek, no fluctuance, no crepitus) - Neuro Neuro: Normal speech Results - Vitals Vitals: Vital Signs - 24 hr 05/08/23 02:10 Temperature 36.6 C Heart Rate 75 Respiratory 16 Rate Blood Pressure 148/83 H O2 Saturation 98 Oxygen O2 Source Room air PD Medical Decision Making - ED course ED course: Patient presenting for evaluation of bilateral ear pain as well as redness and swelling to the right face. She has a history of recurrent pseudomonal infections related to a psoriasis-like condition in her ear canals causing dryness and flaking. This seems to be a recurrence of prior episodes and I did actually recently see this patient in August with a similar presentation. She has responded well to antibiotics and again on exam today she has findings consistent with bilateral external otitis and now facial cellulitis. Start otilia ent on Levaquin again along with Ciprodex for the ear canals. I did place earwax in bilateral ear canals. Patient also request mupirocin as she states that this has been helpful in the past. Patient counseled on need for close follow-up as well as concerning symptoms to return for. No signs of orbital cellulitis or deep space infection or signs of airway compromise at this time. Vital signs are stable. Departure - Departure Disposition: 01 Home, Self Care Clinical Impression: Bilateral otitis externa, Facial cellulitis Condition: Stable Instructions: ED Cellulitis Facial, ED Otitis Externa Prescriptions: Mupirocin 2% Oint [Bactroban 2% Oint] 1 applic TOP BID 7 Days #50 gm Ciproflox/Dexameth Otic Drops [Ciprodex Otic Drops] 4 drops EACHEAR BID 7 Days #7.5 ml levoFLOXacin [Levaquin] 500 mg PO QD 7 Days #14 tab Comments: I am starting you on a combination antibiotic and steroid drops for the treatment of bilateral external ear infections. I am also placing you on an oral antibiotic called Levaquin for the treatment of the skin infection on your face. You have also reported improvement with using mupirocin in the past have also sent a prescription for this. These prescriptions are all sent to [facility]. Please make sure to complete the course of the antibiotics. Return to the ER with any worsening symptoms such as changes to your vision, fevers, worsening swelling or pain. You would likely benefit from a referral to ENT given the frequent episodes you have of ear infections. Forms: PCP List Discharge Date/Time: 05/08/23 02:50
[2023-05-08] MEDS ORDERED: CIPROFLOX/DEXAMETH OTIC DROPS EACHEAR ONE (03:00)
== END 2023-05-08 02:50 | disposition home or self-care (01) ==
LOC: ED 02:06
DX: L03.211 Cellulitis of face (principal); H60.93 Unspecified otitis externa, bilateral
CPT/HCPCS: 99282; 99283; A9270

== ENCOUNTER 2023-11-08 19:50 | Emergency (ER) | payer MEDICAID ==
[2023-11-08 20:09] VITALS: BP 152/96; O2SAT 99
--- NOTE | 2023-11-08 20:42 | ED Physician Documentation ---
PD HPI HEENT - Stated complaint Stated Complaint: L EAR PX/FACE RED - Chief complaint Chief Complaint: Heent - Additional information Additional information: 38-year-old female presents emergency department for concerns of left facial cellulitis. Patient says that she has had this happen before and was seen here twice last year for the same infection. It appears that it is a recurrent pseudomonal infection on my chart review she describes a history similar to psoriasis causing dryness and flaking she says that she usually gets a prescription of Levaquin and mupirocin and this usually fully alleviate symptoms. No recent fevers or chills patient says that she started to notice mild left facial swelling and pain that has increased significantly over the last few hours. 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 Psych: Depression, Anxiety Musculoskeletal: Other - Past Surgical History Past Surgical History: Yes Ortho: Other /DIGITAL MARKETING STRATEGIST: Oophrectomy HEENT: Tonsil/Adenoidectomy - Present Medications Home Medications: Ambulatory Orders Medication Instructions Recorded Confirmed Ciproflox/Dexameth Otic Drops 4 drops EACHEAR BID 7 Days #7.5 ml 05/08/23 [Ciprodex Otic Drops] Mupirocin 2% Oint [Bactroban 2% 1 applic TOP BID 7 Days #50 gm 05/08/23 Oint] levoFLOXacin [Levaquin] 500 mg PO QD 7 Days #14 tab 05/08/23 Mupirocin 2% Oint [Bactroban 2% 1 applic TOP BID 7 Days #22 gm 11/08/23 Oint] levoFLOXacin [Levofloxacin] 500 mg PO BID 7 Days #14 tablet 11/08/23 - Allergies Allergies/Adverse Reactions: Allergies Allergy/AdvReac Type Severity Reaction Status Date / Time No Known Drug Allergies Allergy Verified 11/08/23 20:05 - Social History Does the pt smoke?: No Smoking Status: Never smoker Does the pt drink ETOH?: No Does the pt have substance abuse?: No - Immunizations Immunizations are current?: Yes - POLST Patient has POLST: No PD ED PE NORMAL - General General: Alert and oriented X 3, No acute distress, Well developed/nourished - HEENT HEENT: Other (Left tympanic membrane appears to be included with cerumen unable to visualize if it is perforated or not. She has external left ear swelling and erythema) - Neck Neck: Supple, no meningeal sign, C-Spine cleared by NEXUS criteria - Cardiac Cardiac: RRR, No murmur - Respiratory Respiratory: No respiratory distress, Clear bilaterally - Abdomen Abdomen: Normal bowel sounds, Soft - Derm Derm: Other (Erythema without induration over the left cheek and face with very defined borders. No fluctuance no crepitus. Left ear appears to be quite inflamedExternally.) Results - Vitals Vitals: Vital Signs - 24 hr 11/08/23 20:03 Temperature 36.4 C L Heart Rate 84 Respiratory 16 Rate Blood Pressure 152/96 H O2 Saturation 99 Oxygen O2 Source Room air PD Medical Decision Making - ED course ED course: 30-year-old female presents emergency department for concerns of facial swelling. On my chart review it appears that patient is having these recurrent infections from pseudomonal infection. There is no drainage or induration of the left face. Erythematous very well-defined. Patient was started on mupirocin topical antibiotic here in the emergency department as well as some ofloxacin eardrops here in the emergency department she is told to follow-up with ENT for further evaluation and to have her left ear cleaned given the erythema of the left ear I did not think that it would be warranted to cerumen extraction here in the emergency department. Patient's was told that if her symptoms do not prove over the next couple days or getting worse to go ahead and start the Levaquin prescription. Patient also told that she should follow-up with dermatology for further evaluation of these recurrent infections. Return precautions given safe for discharge all questions answered. Departure - Departure Disposition: 01 Home, Self Care Clinical Impression: Facial cellulitis Instructions: ED Cellulitis Facial Follow-Up: [facility] [Provider Group] Prescriptions: Mupirocin 2% Oint [Bactroban 2% Oint] 1 applic TOP BID 7 Days #22 gm levoFLOXacin [Levofloxacin] 500 mg PO BID 7 Days #14 tablet Comments: Thank you for trusting us with your care. We have started you on some topical mupirocin ointment you apply this twice a day for the next 7 days. We have also started you on some drops for your external ear infection. We have started you on ofloxacin eardrops you will put 10 drops in your left ear and let it soak for about 30 to 45 minutes. Please follow-up with ENT to have that left ear cleaned as well as to have it further evaluated. I have attached [facility] phone number for you to have further evaluation from them. I have also sent a prescription of Levaquin to your preferred pharmacy. You will take this twice a day for the next 7 days tomorrow the erythema has improved significantly with the mupirocin I would hold off on taking Levaquin. Please follow-up with [facility] for further evaluation of this as well by phone number [phone]. Follow-up with your primary care provider about today's ER visit and please come back to the ER if no improvement of symptoms. Wishing a speedy Recovery. Forms: PCP List Discharge Date/Time: 11/08/23 21:16
[2023-11-08] MEDS: OFLOXACIN 0.3% OPHTH DROPS LEFTEAR STA (21:03)
[2023-11-08] MEDS: MUPIROCIN 2% OINT 1 GM TOP STA (21:04)
== END 2023-11-08 21:16 | disposition home or self-care (01) ==
LOC: ED 19:50
DX: L03.211 Cellulitis of face (principal)
CPT/HCPCS: 99283; 99284; A9270

== ENCOUNTER 2024-10-23 10:11 | Inpatient (IN) ==
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
[2024-10-23] MEDS ORDERED: ceFAZolin (2G) 2 GM in SODIUM CHLORIDE 0.9% 100ML 100 ML IV STA (11:22)
[2024-10-23 11:28] LABS: BASOPHILS # (AUTO) 0.1 10^3/uL (0.0-0.1); BASOPHILS % (AUTO) 0.3 %; EOSINOPHILS # (AUTO) 0.1 10^3/uL (0.0-0.7); EOSINOPHILS % (AUTO) 0.5 %; HCT - HEMATOCRIT 40.1 % (37.0-47.0); HGB - HEMOGLOBIN 13.1 g/dL (12.0-16.0); LYMPHOCYTES # (AUTO) 0.7 10^3/uL (1.5-3.5); LYMPHOCYTES % (AUTO) 2.3 %; MEAN CORPUSCULAR HGB CONC 32.7 g/dL (32.0-36.0); MEAN CORPUSCULAR VOLUME 88.7 fL (81.0-99.0); MEAN PLATELET VOLUME 10.5 fL (7.9-10.8); MONOCYTES # (AUTO) 0.6 10^3/uL (0.0-1.0); MONOCYTES % (AUTO) 2.1 %; NEUTROPHILS % (AUTO) 93.7 %; PLT - PLATELET COUNT 260 10^3/uL (130-450); RED BLOOD COUNT 4.52 10^6/uL (4.20-5.40); RED CELL DISTRIBUTION WIDTH 13.8 % (12.0-15.0); SLIDE REVIEW? Indicated; WHITE BLOOD COUNT 28.8 x10^3/uL (4.8-10.8)
[2024-10-23] MEDS: SODIUM CHLORIDE 0.9% 2,449.41 ML IV STA (11:35)
[2024-10-23] MEDS: ceFAZolin 2 GM/50 ML 2 GM/50 ML BAG IV STA (11:36)
[2024-10-23 11:39] LABS: ALBUMIN 4.4 g/dL (3.2-5.5); ALBUMIN/GLOBULIN RATIO 1.3 (1.0-2.2); BILIRUBIN,TOTAL 0.7 mg/dL (0.2-1.0); CALCIUM 9.4 mg/dL (8.5-10.3); CREATININE 0.8 mg/dL (0.6-1.3); POTASSIUM 3.5 mmol/L (3.5-4.5); TOTAL PROTEIN 7.7 g/dL (6.4-8.9)
[2024-10-23] MEDS: ACETAMINOPHEN 325 MG TABLET PO STA (11:42)
[2024-10-23 11:52] LABS: PLATELET ESTIMATE, MANUAL NORMAL (130-450,000) (NORMAL); PLATELET MORPHOLOGY NORMAL APPEARANCE (NORMAL); RBC MORPHOLOGY (MULTIPLE) 1+ STOMATOCYTES (NORMAL)
[2024-10-23] MEDS: ceFAZolin (2G) 2 GM in SODIUM CHLORIDE 0.9% MINIBAG 100 ML IV STA (11:52)
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
--- OUTSIDE RECORDS SUMMARY | 2024-10-23 12:37 | EXTERNAL MEDICAL SUMMARY RPT | Continuity of Care Document ---
Author Organization [facility] Address [address] [place] [id number] Phone Results/Labs test date facility value unit notes Result panel 1 NUCLEATED RED BLOOD CELLS AUTO 2024-10-23 11:12 [facility] 0.0 /100wbc (missing) NRBC ABSOLUTE COUNT (AUTO) 2024-10-23 11:12 [facility] 0.00 x10 3/ul (missing) BASOPHILS # (AUTO) 2024-10-23 11:12 [facility] 0.1 10 3/ul (missing) EOSINOPHILS # (AUTO) 2024-10-23 11:12 [facility] 0.1 10 3/ul (missing) MONOCYTES # (AUTO) 2024-10-23 11:12 [facility] 0.6 10 3/ul (missing) LYMPHOCYTES # (AUTO) 2024-10-23 11:12 [facility] 0.7 10 3/ul (missing) BILIRUBIN,TOTAL 2024-10-23 11:12 [facility] 0.7 mg/dl As of December 2022 testing method has changed, this may include reference ranges. CREATININE 2024-10-23 11:12 [facility] 0.8 mg/dl As of December 2022 testing method has changed, this may include reference ranges. RBC MORPHOLOGY (MULTIPLE) 2024-10-23 11:12 [facility] 1+ STOMATOCYTES (missing) (missing) ALBUMIN/GLOBULIN RATIO 2024-10-23 11:12 [facility] 1.3 (missing) (missing) LACTIC ACID, VENOUS 2024-10-23 11:12 [facility] 1.5 mmol/l Y As of December 2022 testing method has changed, this may include reference ranges. MEAN PLATELET VOLUME 2024-10-23 11:12 [facility] 10.5 fl (missing) GLUCOSE 2024-10-23 11:12 [facility] 112 mg/dl As of December 2022 testing method has changed, this may include reference ranges. ALT ALANINE AMINOTRANSFERASE 2024-10-23 11:12 [facility] 12 iu/l As of December 2022 testing method has changed, this may include reference ranges. AST ASPARTATE AMINOTRANSFERASE 2024-10-23 11:12 [facility] 13 iu/l As of December 2022 testing method has changed, this may include reference ranges. BUN - BLOOD UREA NITROGEN 2024-10-23 11:12 [facility] 13 mg/dl As of December 2022 testing method has changed, this may include reference ranges. HGB - HEMOGLOBIN 2024-10-23 11:12 [facility] 13.1 g/dl (missing) RED CELL DISTRIBUTION WIDTH 2024-10-23 11:12 [facility] 13.8 % (missing) SODIUM 2024-10-23 11:12 [facility] 131 mmol/l (missing) CARBON DIOXIDE - CO2 2024-10-23 11:12 [facility] 26 mmol/l As of December 2022 testing method has changed, this may include reference ranges. PLT - PLATELET COUNT 2024-10-23 11:12 [facility] 260 10 3/ul (missing) NEUTROPHILS # (AUTO) 2024-10-23 11:12 [facility] 27.0 10 3/ul (missing) WHITE BLOOD COUNT 2024-10-23 11:12 [facility] 28.8 x10 3/ul (missing) MEAN CORPUSCULAR HEMOGLOBIN 2024-10-23 11:12 [facility] 29.0 pg (missing) GLOBULIN 2024-10-23 11:12 [facility] 3.3 g/dl (missing) POTASSIUM 2024-10-23 11:12 [facility] 3.5 mmol/l As of December 2022 testing method has changed, this may include reference ranges. MEAN CORPUSCULAR HGB CONC 2024-10-23 11:12 [facility] 32.7 g/dl (missing) ALBUMIN 2024-10-23 11:12 [facility] 4.4 g/dl As of December 2022 testing method has changed, this may include reference ranges. RED BLOOD COUNT 2024-10-23 11:12 [facility] 4.52 10 6/ul (missing) HCT - HEMATOCRIT 2024-10-23 11:12 [facility] 40.1 % (missing) ALKALINE PHOSPHATASE 2024-10-23 11:12 [facility] 52 iu/l As of December 2022 testing method has changed, this may include reference ranges. TOTAL PROTEIN 2024-10-23 11:12 [facility] 7.7 g/dl As of December 2022 testing method has changed, this may include reference ranges. ANION GAP 2024-10-23 11:12 [facility] 8.0 (missing) (missing) GFR - MDRD 2024-10-23 11:12 [facility] 80 (missing) Social History date description facility
[2024-10-23] MEDS ORDERED: SODIUM CHLORIDE FLUSH 0.9% 10 ML SYRINGE IVP PRN (12:50)
--- NOTE | 2024-10-23 13:23 | XRAY Report ---
PROCEDURE: XR Chest 1V INDICATIONS: Sepsis TECHNIQUE: One view of the chest was acquired. COMPARISON: 03/19/2024. FINDINGS: Surgical changes and devices: None. Lungs and pleura: No pleural effusions or pneumothorax. No consolidation. Mediastinum: Mediastinal contours appear normal. Heart size is normal. Bones and chest wall: No suspicious bony lesions. Overlying soft tissues appear unremarkable. IMPRESSION: No acute cardiopulmonary process. Reviewed by: Deirck Aceves MD on 10/23/2024 1:21 PM PDT Approved by: Derick Aceves MD on 10/23/2024 1:21 PM PDT Station ID: [id number]
[2024-10-23 13:51] LABS: BILIRUBIN,URINE NEGATIVE (NEGATIVE); GLUCOSE, URINE (UA) NEGATIVE (NEGATIVE); KETONES,URINE (UA) 15 mg/dL (NEGATIVE); LEUKOCYTE ESTERASE, URINE TRACE (NEGATIVE); NITRITE,URINE POSITIVE (NEGATIVE); OCCULT BLOOD,URINE TRACE-INTA (NEGATIVE); PROTEIN,URINE NEGATIVE (NEGATIVE); UROBILINOGEN,URINE 0.2 (NORMAL) E.U./dL (NORMAL)
[2024-10-23 13:57] LABS: CLARITY,URINE CLEAR (CLEAR)
[2024-10-23 14:05] LABS: BACTERIA,URINE Rare /HPF (None Seen); RBC,URINE 0-5 /HPF (0-5); SQUAMOUS EPITHELIAL CELL,UR RARE Squamous (<= Few)
[2024-10-23] MEDS: CEFEPIME 2 GM VIAL IVP SCH (15:07)
[2024-10-23] MEDS: VANCOMYCIN INJ 2 GM in SODIUM CHLORIDE 0.9% 500 ML IV ONE (15:07)
[2024-10-23] MEDS: VANCOMYCIN INJ 1 GM in SODIUM CHLORIDE 0.9% 250 ML IV SCH (19:57)
[2024-10-23] MEDS: SODIUM CHLORIDE FLUSH 0.9% 10 ML SYRINGE IVP SCH (19:58)
[2024-10-23] MEDS: IBUPROFEN 400 MG TABLET PO PRN (20:11)
[2024-10-24] MEDS: ACETAMINOPHEN 325 MG TABLET PO PRN (01:26)
[2024-10-24 06:01] LABS: HCT - HEMATOCRIT 38.8 % (37.0-47.0); HGB - HEMOGLOBIN 12.6 g/dL (12.0-16.0); MEAN CORPUSCULAR HEMOGLOBIN 29.2 pg (27.0-31.0); MEAN CORPUSCULAR HGB CONC 32.5 g/dL (32.0-36.0); MEAN CORPUSCULAR VOLUME 89.8 fL (81.0-99.0); MEAN PLATELET VOLUME 10.6 fL (7.9-10.8); RED BLOOD COUNT 4.32 10^6/uL (4.20-5.40); RED CELL DISTRIBUTION WIDTH 14.1 % (12.0-15.0); WHITE BLOOD COUNT 20.1 x10^3/uL (4.8-10.8)
[2024-10-24 06:16] LABS: CALCIUM 9.1 mg/dL (8.5-10.3); CREATININE 0.6 mg/dL (0.6-1.3); POTASSIUM 3.7 mmol/L (3.5-4.5)
[2024-10-24] MEDS: diphenhydrAMINE 25 MG CAPSULE PO PRN (08:41)
[2024-10-24] MEDS: ENOXAPARIN 40 MG/0.4 ML SYRINGE SUBQ SCH (08:42)
--- NOTE | 2024-10-24 09:23 | PROVIDER PROGRESS NOTE ---
Subjective Prog Note Date Prog Note Date: 10/24/24 Prog Note Time: 09:13 Subjective Pt reports feeling: Improved Subjective: Patient laying comfortably in bed with spouse, no acute distress. She reports improvement in swelling and tenderness to left face and ear. She notes some pruritus and flaking to area but states this will occur in previous infections as it resolves. Confirmed patient did not take oral abx as she usually does but did apply mupirocin ointment to the area. Mentions she will historically have increased dryness and skin tightness to face and scalp prior to onset of cellulitis. Denies history of photosensitive rash. She recalls possible previous diagnosis of atopic dermatitis vs seborrheic dermatitis, attempting unknown shampoo without management. Denies newly developed rash to other parts of her body. Current Medications Current Medications Current Medications: Current Medications Generic Name Dose Route Start Last Admin Trade Name Freq PRN Reason Stop Dose Admin Acetaminophen 650 mg 10/23/24 13:45 10/24/24 01:26 Acetaminophen 325 Mg Tablet PO 650 mg Q4HR PRN Administration Pain 1 to 4, or Fever Hydrocodone Bitart/Acetaminophen 1 tab 10/23/24 13:45 Hydrocod/Acetam 5/325 Mg Tablet PO Q4HR PRN Pain 5 to 7 Cefepime HCl 2 gm 10/23/24 14:00 10/24/24 08:42 Cefepime 2 Gm Vial IVP 2 gm Q8HR OMAR Administration Diphenhydramine HCl 25 mg 10/24/24 08:25 10/24/24 08:41 Diphenhydramine 25 Mg Capsule PO 25 mg Q4HR PRN Administration Allergy Symptoms Enoxaparin Sodium 40 mg 10/24/24 09:00 10/24/24 08:42 Enoxaparin 40 Mg/0.4 Ml Syringe SUBQ Not Given DAILY OMAR Vancomycin HCl 1 gm/ Sodium 250 mls @ 167 mls/hr 10/23/24 20:00 10/24/24 05:30 Chloride IV 100 mls/hr Q8H OMAR Administration Ibuprofen 400 mg 10/23/24 20:02 10/24/24 05:35 Ibuprofen 400 Mg Tablet PO 400 mg Q6HR PRN Administration Moderate Pain (Level 4-6) Sodium Chloride 10 ml 10/23/24 12:50 Sodium Chloride Flush 0.9% 10 Ml Syringe IVP PRN PRN NEEDED PER PROVIDER ORDERS Sodium Chloride 10 ml 10/23/24 17:00 10/24/24 08:42 Sodium Chloride Flush 0.9% 10 Ml Syringe IVP 10 ml 0100,0900,1700 OMAR Administration Objective Vital Signs/Intake & Output Reviewed Vital Signs: Yes Vital Signs: Vital Signs x48h Temp Pulse Resp BP Pulse Ox 10/24/24 08:49 37.0 C 82 18 106/61 95 Intake & Output: Intake & Output 10/21/24 10/22/24 10/23/24 10/24/24 23:59 23:59 23:59 23:59 Intake Total 4079.41 / 4079.41 Output Total 1999 550 / 550 Balance 2079.41 / 2078.41 -550 / -550 Weight (kg) 81.647 kg Objective General Appearance: positive No acute distress and Alert Eyes Bilateral: positive Normal inspection, PERRL, EOMI, Conjunctivae nml and Other (Mild tenderness to palpation of left temporal scalp) Eyes: OS: Lid inflammation ENT: positive Other (Drainage and erythema to external ears and auditory canal with radiation to left lateral neck-improved from last evaluation. ) Neck: positive Nml inspection Respiratory: positive Chest non-tender, No respiratory distress and Breath sounds nml; negative Wheezes, Rales or Rhonchi Cardiovascular: positive Regular rate & rhythm, No murmur and No gallop; negative Friction rub Abdomen: positive Non-tender Skin: positive Color nml and Other (Papular rash and diffuse erythema to face, bilateral cheeks, left lateral neck- improving; excoriations above ears improving. Minimal flaking noted around alar crease and right perioral region. ) Extremities: positive No pedal edema; negative Calf tenderness Neurologic/Psychiatric: positive Oriented x3 and CN's nml (2-12) Lab Results 10/24/24 05:53 10/24/24 05:53 Other Labs: Lab Results x24hrs 10/24/24 10/23/24 10/23/24 Range/Units 05:53 13:35 11:12 WBC 20.1 H 28.8 H (4.8-10.8) x10^3/uL RBC 4.32 4.52 (4.20-5.40) 10^6/uL Hgb 12.6 13.1 (12.0-16.0) g/dL Hct 38.8 40.1 (37.0-47.0) % MCV 89.8 88.7 (81.0-99.0) fL MCH 29.2 29.0 (27.0-31.0) pg MCHC 32.5 32.7 (32.0-36.0) g/dL RDW 14.1 13.8 (12.0-15.0) % Plt Count 213 260 (130-450) 10^3/uL MPV 10.6 10.5 (7.9-10.8) fL Neut # (Auto) 27.0 H (1.5-6.6) 10^3/uL Lymph # (Auto) 0.7 L (1.5-3.5) 10^3/uL [place] # (Auto) 0.6 (0.0-1.0) 10^3/uL Eos # (Auto) 0.1 (0.0-0.7) 10^3/uL Baso # (Auto) 0.1 (0.0-0.1) 10^3/uL Absolute Nucleated RBC 0.00 x10^3/uL Nucleated RBC % 0.0 /100WBC Manual Slide Review Indicated Platelet Estimate NORMAL (130-450,000) (NORMAL) Platelet Morphology NORMAL APPEARANCE (NORMAL) RBC Morph Micro Appear 1+ STOMATOCYTES (NORMAL) Sodium 139 131 L (135-145) mmol/L Potassium 3.7 3.5 (3.5-4.5) mmol/L Chloride 108 97 L (101-111) mmol/L Carbon Dioxide 25 26 (21-32) mmol/L Anion Gap 6.0 8.0 (6-13) BUN 11 13 (6-20) mg/dL Creatinine 0.6 0.8 (0.6-1.3) mg/dL Estimated GFR (MDRD) 111 80 L (>89) Glucose 121 H 112 H (74-104) mg/dL Lactic Acid 1.5 (0.5-2.2) mmol/L Calcium 9.1 9.4 (8.5-10.3) mg/dL Magnesium 2.0 (1.7-2.3) mg/dL Total Bilirubin 0.7 (0.2-1.0) mg/dL AST 13 (10-42) IU/L ALT 12 (10-60) IU/L Alkaline Phosphatase 52 (42-121) IU/L Total Protein 7.7 (6.4-8.9) g/dL Albumin 4.4 (3.2-5.5) g/dL Globulin 3.3 (2.1-4.2) g/dL Albumin/Globulin Ratio 1.3 (1.0-2.2) Urine Color YELLOW Urine Clarity CLEAR (CLEAR) Urine pH 6.0 (5.0-7.5) PH Ur Specific [place] <=1.005 (1.002-1.030) Urine Protein NEGATIVE (NEGATIVE) mg/dL Urine Glucose (UA) NEGATIVE (NEGATIVE) mg/dL Urine Ketones 15 H (NEGATIVE) mg/dL Urine Occult Blood TRACE-INTA (NEGATIVE) Urine Nitrite POSITIVE H (NEGATIVE) Urine Bilirubin NEGATIVE (NEGATIVE) Urine Urobilinogen 0.2 (NORMAL) (NORMAL) E.U./dL Ur Leukocyte Esterase TRACE H (NEGATIVE) Urine RBC 0-5 (0-5) /HPF Urine WBC 6-10 H (0-5) /HPF Ur Squamous Epith Cells RARE Squamous (<= Few) Urine Bacteria Rare (None Seen) /HPF Urine Culture Comments INDICATED Diagnostic Imaging Diagnostic Imaging Results: positive Final report reviewed Diagnostic Imaging Comments: EXAM: [id number] CT/FACBW ([id number]) PROCEDURE: CT Maxillofacial W INDICATIONS: ct temporal bones CONTRAST: Omni 300 100ml TECHNIQUE: After the administration of intravenous contrast, 3.0 mm axial sections acquired from the mid-neck to the frontal sinuses, with coronal reformatting. 3-D reformatted images were performed. For radiation dose reduction, the following was used: automated exposure control, adjustment of mA and/or kV according to patient size. COMPARISON: Correlation is made with facial bone plain films, 12/03/2020. FINDINGS: Image quality: Excellent. Soft tissues: Generalized soft tissue thickening can be seen on the left, which is worst within the left periorbital region. However, the left cheek and the left perimandibular region are also involved. There is mild involvement of the right perimandibular region. No soft tissue gas or drainable abscess is seen. Bilateral enlarged cervical lymph nodes are seen, including a left level 2A lymph node measuring 20 x 13 mm and a right level 2A lymph node measuring 25 x 13 mm. Vascular: Visualized vascular structures appear patent throughout. Bony vascular foramina and canals appear normal. Bones: Facial bones appear intact, without fractures, erosions, or destruction. Visualized portions of the skull base and auditory canals also appear normal. Sinuses: Paranasal sinuses are aerated without fluid levels, mucosal thickening, or mucoceles. Mastoid air cells are aerated. There is moderate leftward nasal septal deviation. 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 The ostiomeatal complexes are patent, yet they are constitutionally narrowed, with bilateral Lidya cells. IMPRESSION: Abnormal soft tissue swelling can be seen, which is most consistent with cellulitis. This is worst within the left paravertebral region. No soft tissue abscess or fluid collection can be seen. Enlarged cervical lymph nodes are seen, which are regarded to be reactive in this patient. ABX Reporting Has patient been on IV antibiotics over the past 48 hours?: Yes Sepsis Event Note (H) Evaluation Current Stage of Sepsis: Sepsis (Improving) Possible source of Sepsis: positive Skin/soft tissue Assessment/Plan Problem List (1) Sepsis: Impression: -Improving on IV vancomycin and cefepime. Patient is afebrile with normal pulse rate. Leukocytosis improved from 28 to 20. -Culture negative for pathogen but may be false negative as patient applied mupuricin prior to ED arrival. Given history of similar infection with positive pseudomonas culture and improvement with treatment course, patient to continue empiric treatment with broad spectrum IV vancomycin and cefepime. -Continue monitoring CBC and will discharge home on oral abx upon normalization of WBC. Qualifiers: Sepsis acute organ dysfunction status: without acute organ dysfunction Sepsis type: sepsis due to unspecified organism Qualified Code(s): A41.9 - Sepsis, unspecified organism (2) Malignant otitis externa of both ears: Impression: -Improving. Slight tenderness to left temporal scalp and periorbital region noted on exam. CT Head/Neck/Maxillofacial ordered- Negative for signs of abscess, osteomyelitis, or bony erosions. Positive for leftward septal deviation and right-sided conchal bullosa, possibly contributing to recurrent otitis externa. Recommend patient follow up with ENT outpatient. Qualifiers: Chronicity: acute Qualified Code(s): H60.23 - Malignant otitis externa, bilateral (3) Cellulitis and abscess of face: Impression: -As above. Improving -Patient to follow up with dermatology upon resolution of rash to consider further workup/ biopsy for management of possible underlying dermatitis.
[2024-10-24] MEDS ORDERED: iohexoL-300 100 ML VIAL ONE (09:24)
[2024-10-24] MEDS: iohexoL-300 100 ML VIAL IVP ONE (09:35)
--- NOTE | 2024-10-24 10:29 | PHARMACY PROGRESS NOTE ---
Best Possible Medication History Admit Date and Time: 10/23/24 1220 Home Medications Medication Instructions Recorded Confirmed Type mupirocin 2 % topical ointment 1 applic topical BID 7 days #50 05/08/23 10/23/24 Rx grams etonogestrel 68 mg subdermal 1 implant subdermal ONCE 10/23/24 10/23/24 History implant (Nexplanon) Processed by: Pharmacy Medications reviewed in ED?: No Medication History completed: Yes Patient Interview: Completed [facility] Statement: As the person ultimately responsible for medication therapy, providers are able to order a medication from an existing home medication list in [facility] via the "Reconcile Routine" prior to Confirmation of that medication by instructional support technician. Such practice is discouraged except when the physician, in their clinical judgment, deems that a medical need exists for a medication without regard to previous use.
--- NOTE | 2024-10-24 10:37 | CT Report ---
PROCEDURE: CT Maxillofacial W INDICATIONS: ct temporal bones CONTRAST: Omni 300 100ml TECHNIQUE: After the administration of intravenous contrast, 3.0 mm axial sections acquired from the mid-neck to the frontal sinuses, with coronal reformatting. 3-D reformatted images were performed. For radiation dose reduction, the following was used: automated exposure control, adjustment of mA and/or kV according to patient size. COMPARISON: Correlation is made with facial bone plain films, 12/03/2020. FINDINGS: Image quality: Excellent. Soft tissues: Generalized soft tissue thickening can be seen on the left, which is worst within the left periorbital region. However, the left cheek and the left perimandibular region are also involved. There is mild involvement of the right perimandibular region. No soft tissue gas or drainable abscess is seen. Bilateral enlarged cervical lymph nodes are seen, including a left level 2A lymph node measuring 20 x 13 mm and a right level 2A lymph node measuring 25 x 13 mm. Vascular: Visualized vascular structures appear patent throughout. Bony vascular foramina and canals appear normal. Bones: Facial bones appear intact, without fractures, erosions, or destruction. Visualized portions of the skull base and auditory canals also appear normal. Sinuses: Paranasal sinuses are aerated without fluid levels, mucosal thickening, or mucoceles. Mastoid air cells are aerated. There is moderate leftward nasal septal deviation. 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 The ostiomeatal complexes are patent, yet they are constitutionally narrowed, with bilateral Lidya cells. IMPRESSION: Abnormal soft tissue swelling can be seen, which is most consistent with cellulitis. This is worst within the left paravertebral region. No soft tissue abscess or fluid collection can be seen. Enlarged cervical lymph nodes are seen, which are regarded to be reactive in this patient. Reviewed by: Jose Braxton MD on 10/24/2024 9:36 AM JESS Approved by: Jose Braxton MD on 10/24/2024 9:36 AM JESS Station ID: [id number]
[2024-10-24] MEDS: BACITRACIN ZINC OINT 1 PACKET TOP SCH (14:49)
[2024-10-24] MEDS: HYDROcod/ACETAM 5/325 MG TABLET PO PRN (15:43)
[2024-10-24 16:26] VITALS: TEMP 98.2
[2024-10-25 06:00] LABS: HCT - HEMATOCRIT 37.3 % (37.0-47.0); HGB - HEMOGLOBIN 11.3 g/dL (12.0-16.0); MEAN CORPUSCULAR HEMOGLOBIN 28.3 pg (27.0-31.0); MEAN CORPUSCULAR HGB CONC 30.3 g/dL (32.0-36.0); MEAN CORPUSCULAR VOLUME 93.5 fL (81.0-99.0); RED BLOOD COUNT 3.99 10^6/uL (4.20-5.40); RED CELL DISTRIBUTION WIDTH 14.3 % (12.0-15.0); WHITE BLOOD COUNT 10.7 x10^3/uL (4.8-10.8)
[2024-10-25 06:19] LABS: CALCIUM 8.3 mg/dL (8.5-10.3); CREATININE 0.6 mg/dL (0.6-1.3); POTASSIUM 3.7 mmol/L (3.5-4.5)
[2024-10-25 08:31] VITALS: BP 111/65; O2SAT 99
--- NOTE | 2024-10-25 10:24 | PROVIDER PROGRESS NOTE ---
Subjective Prog Note Date Prog Note Date: 10/25/24 Prog Note Time: 10:18 Subjective Pt reports feeling: Improved Subjective: Patient denies any pain with eye movement or changes in vision. States tenderness has overall improved. She expresses anxiety over staying in the hospital due to trauma from past imprisonment. She insists on a faster course of treatment that will allow her home [place]. Current Medications Current Medications Current Medications: Current Medications Generic Name Dose Route Start Last Admin Trade Name Freq PRN Reason Stop Dose Admin Acetaminophen 650 mg 10/23/24 13:45 10/25/24 03:18 Acetaminophen 325 Mg Tablet PO 650 mg Q4HR PRN Administration Pain 1 to 4, or Fever Hydrocodone Bitart/Acetaminophen 1 tab 10/23/24 13:45 10/24/24 15:43 Hydrocod/Acetam 5/325 Mg Tablet PO 1 tab Q4HR PRN Administration Pain 5 to 7 Bacitracin 1 packet 10/24/24 14:00 10/25/24 10:08 Bacitracin Zinc Oint 1 Packet TOP 1 packet BID OMAR Administration Cefepime HCl 2 gm 10/23/24 14:00 10/25/24 07:35 Cefepime 2 Gm Vial IVP 2 gm Q8HR OMAR Administration Diphenhydramine HCl 25 mg 10/24/24 08:25 10/25/24 03:18 Diphenhydramine 25 Mg Capsule PO 25 mg Q4HR PRN Administration Allergy Symptoms Enoxaparin Sodium 40 mg 10/24/24 09:00 10/25/24 09:51 Enoxaparin 40 Mg/0.4 Ml Syringe SUBQ Not Given DAILY OMAR Vancomycin HCl 1 gm/ Sodium 250 mls @ 167 mls/hr 10/23/24 20:00 10/25/24 03:17 Chloride IV 100 mls/hr Q8H OMAR Administration Ibuprofen 400 mg 10/23/24 20:02 10/24/24 17:42 Ibuprofen 400 Mg Tablet PO 400 mg Q6HR PRN Administration Moderate Pain (Level 4-6) Sodium Chloride 10 ml 10/23/24 12:50 Sodium Chloride Flush 0.9% 10 Ml Syringe IVP PRN PRN NEEDED PER PROVIDER ORDERS Sodium Chloride 10 ml 10/23/24 17:00 10/25/24 10:08 Sodium Chloride Flush 0.9% 10 Ml Syringe IVP 10 ml 0100,0900,1700 OMAR Administration Objective Vital Signs/Intake & Output Reviewed Vital Signs: Yes Vital Signs: Vital Signs x48h Temp Pulse Resp BP Pulse Ox 10/25/24 08:29 36.8 C 85 18 111/65 99 Intake & Output: Intake & Output 10/22/24 10/23/24 10/24/24 10/25/24 23:59 23:59 23:59 23:59 Intake Total 4079.41 / 4079.41 2425 / 2425 720 / 720 Output Total 1999 950 / 950 Balance 2079.41 / 2079.41 1475 / 1475 720 / 720 Weight (kg) 81.647 kg Objective General Appearance: positive No acute distress, Alert and Anxious Eyes Bilateral: positive Normal inspection, PERRL, EOMI, Conjunctivae nml and Other Eyes: OS: Lid inflammation ENT: positive Other (Continually improving erythema and swelling to external ears and auditory canal with radiation to left lateral neck ) Neck: positive Nml inspection Respiratory: positive Chest non-tender, No respiratory distress and Breath sounds nml; negative Wheezes, Rales or Rhonchi Cardiovascular: positive Regular rate & rhythm, No murmur and No gallop; negative Friction rub Abdomen: positive Non-tender Skin: positive Color nml and Other (Papular rash and diffuse erythema to face (L>R), bilateral cheeks (L>R), left lateral neck- improving; excoriations above ears improving. Increased patches of flaking to face diffusely.) Extremities: positive No pedal edema; negative Calf tenderness Neurologic/Psychiatric: positive Oriented x3 and CN's nml (2-12) Lab Results 10/25/24 05:37 10/25/24 05:37 Other Labs: Lab Results x24hrs 10/25/24 Range/Units 05:37 WBC 10.7 (4.8-10.8) x10^3/uL RBC 3.99 L (4.20-5.40) 10^6/uL Hgb 11.3 L (12.0-16.0) g/dL Hct 37.3 (37.0-47.0) % MCV 93.5 (81.0-99.0) fL MCH 28.3 (27.0-31.0) pg MCHC 30.3 L (32.0-36.0) g/dL RDW 14.3 (12.0-15.0) % Plt Count 207 (130-450) 10^3/uL MPV 11.0 H (7.9-10.8) fL Sodium 139 (135-145) mmol/L Potassium 3.7 (3.5-4.5) mmol/L Chloride 111 (101-111) mmol/L Carbon Dioxide 23 (21-32) mmol/L Anion Gap 5.0 L (6-13) BUN 10 (6-20) mg/dL Creatinine 0.6 (0.6-1.3) mg/dL Estimated GFR (MDRD) 111 (>89) Glucose 109 H (74-104) mg/dL Calcium 8.3 L (8.5-10.3) mg/dL Diagnostic Imaging Diagnostic Imaging Results: positive Final report reviewed Diagnostic Imaging Comments: EXAM: [id number] CT/FACBW ([id number]) PROCEDURE: CT Maxillofacial W INDICATIONS: ct temporal bones CONTRAST: Omni 300 100ml TECHNIQUE: After the administration of intravenous contrast, 3.0 mm axial sections acquired from the mid-neck to the frontal sinuses, with coronal reformatting. 3-D reformatted images were performed. For radiation dose reduction, the following was used: automated exposure control, adjustment of mA and/or kV according to patient size. COMPARISON: Correlation is made with facial bone plain films, 12/03/2020. FINDINGS: Image quality: Excellent. Soft tissues: Generalized soft tissue thickening can be seen on the left, which is worst within the left periorbital region. However, the left cheek and the left perimandibular region are also involved. There is mild involvement of the right perimandibular region. No soft tissue gas or drainable abscess is seen. Bilateral enlarged cervical lymph nodes are seen, including a left level 2A lymph node measuring 20 x 13 mm and a right level 2A lymph node measuring 25 x 13 mm. Vascular: Visualized vascular structures appear patent throughout. Bony vascular foramina and canals appear normal. Bones: Facial bones appear intact, without fractures, erosions, or destruction. Visualized portions of the skull base and auditory canals also appear normal. Sinuses: Paranasal sinuses are aerated without fluid levels, mucosal thickening, or mucoceles. Mastoid air cells are aerated. There is moderate leftward nasal septal deviation. 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 The ostiomeatal complexes are patent, yet they are constitutionally narrowed, with bilateral Lidya cells. IMPRESSION: Abnormal soft tissue swelling can be seen, which is most consistent with cellulitis. This is worst within the left paravertebral region. No soft tissue abscess or fluid collection can be seen. Enlarged cervical lymph nodes are seen, which are regarded to be reactive in this patient. ABX Reporting Has patient been on IV antibiotics over the past 48 hours?: Yes Sepsis Event Note (H) Evaluation Current Stage of Sepsis: Sepsis (Improving) Possible source of Sepsis: positive Skin/soft tissue Assessment/Plan Problem List (1) Sepsis: Impression: -Improving on IV vancomycin and cefepime. Patient is afebrile with normal pulse rate. Leukocytosis resolved with WBC of 10. -Erythema and swelling still persistent periorbitally on the left without fluctuance or warmth. Overall improving. Recommend patient stay an additional night for further resolution. However, patient is not agreeable on plan and would like to leave the hospital [facility]. Discussed risks of leaving prior to completion of IV abx and patient verbalizes understanding. Will complete one more round of IV vancomycin and cefepime to complete today's course. Patient will be discharged on an additional 3 days of Bactrim DS 800mg/160mg PO Q12 hours and Levofloxacin 750mg QD. Due to risk of C.diff from prolonged abx use, advise patient use probiotic. Strongly encouraged patient to establish with PCP for close follow up. Qualifiers: Sepsis acute organ dysfunction status: without acute organ dysfunction Sepsis type: sepsis due to unspecified organism Qualified Code(s): A41.9 - Sepsis, unspecified organism (2) Malignant otitis externa of both ears: Impression: -Continues to improve. Recommend patient follow up with ENT outpatient. Qualifiers: Chronicity: acute Qualified Code(s): H60.23 - Malignant otitis externa, bilateral (3) Cellulitis and abscess of face: Impression: -As above. Continues to improve -Patient to follow up with dermatology upon resolution of rash to consider further workup/ biopsy for management of possible underlying dermatitis.
[2024-10-25 11:21] LABS: VANCOMYCIN,TROUGH 12.8 ug/mL
--- NOTE | 2024-10-25 13:26 | Discharge Summary ---
"Discharge Summary Admit Date: 10/23/24 Discharge Date: 10/25/24 Discharging Provider: Dr. Joseluis Araiza Primary Care Provider: None Code Status: Attempt Resuscitation Discharge Facility Name: Home DIAGNOSES Admission Diagnoses: Sepsis Malignant otitis externa of both ears Cellulitis of face Ankylosing spondylitis Endometriosis Discharge Diagnoses with Status of Each Condition: Sepsisresolved. Leukocytosis normal. Afebrile for over 24 hours. Completed 3 days of IV antibiotics, will send home on 4 additional days of oral antibiotics. Otitis externa of both ears, cellulitisprevious wound cultures have grown Pseudomonas. This wound culture grew Staph aureus. As such, will send home with levofloxacin and Bactrim to complete a 7-day course. Advised extensively to follow-up with PCP, ENT, dermatology. Ankylosing spondylitis, endometriosiscontinue close follow-up with primary care provider. HPI History of Present Illness: Patient is a 39-year-old female with a history of recurrent facial cellulitis, recurrent malignant otitis externa who presents with diffuse facial rash. Patient states that she gets recurrent ear infections, which leads to skin breakdown around her ear, and then leads to a rash across her face. Usually, she takes a dose of levofloxacin, which clears the rash. However, she is in the midst of moving, and cannot find her levofloxacin, so she just went to sleep, and when she woke up, the rash had spread to the other side of her face. She states that she has gotten her recurrent ear infections worked up in the past, i.e. visit to ENT who just cleaned her ears. She also has seen a book solicitor in the past for her ankylosing spondylitis, but they have not worked her up for any other rheumatological conditions including lupus versus psoriasis. For the past couple days, she has had a fever, chills. She states that she has been admitted a couple times in the past for IV antibiotics related to this. At one time, her white count was as high as 33. In the emergency room, she was febrile to 102.4, tachycardic to 104, respiratory rate was 20, she was satting 95% on room air, blood pressure was 106/66. Lab work was reviewedshows a leukocytosis of 28.8. Her BMP was remarkable for sodium of 131. Her glucose was mildly elevated at 112. Chest x-ray showed no acute process. She was admitted for sepsis, cellulitis. CONSULTS | PROCEDURES Consultations: - Procedures: CT maxillofacial HOSPITAL COURSE Hospital Course: Patient is a 39-year-old female with a history of recurrent facial cellulitis, recurrent otitis externa who presented with ear drainage, as well as a diffuse rash across her face. She was septic, tachycardic, with leukocytosis of 28, as well as febrile. She was started on IV vancomycin and cefepime. Wound culture was done, and it did grow Staph aureus after 2 days. She was started on broad- spectrum antibiotics with vancomycin and cefepime. Her rash started to improve, she had some flaking of the skin, the erythema decreased. Her sepsis resolved, her white count is within normal limits. She completed 3 days of IV antibiotics, and will be discharged home with 4 additional days of levofloxacin, as she has a history of Pseudomonas in her wound, and Bactrim as her wound culture was growing MSSA. She was advised extensively to follow-up with PCP, dermatology, and ENT in the outpatient setting. ALLERGIES Allergies Allergy/AdvReac Type Severity Reaction Status Date / Time No Known Drug Allergies Allergy Verified 10/23/24 10:40 MEDICATIONS Ambulatory Orders Medication Instructions Recorded Confirmed mupirocin 2 % topical ointment 1 applic topical BID 7 days #50 05/08/23 10/23/24 grams etonogestrel 68 mg subdermal 1 implant subdermal ONCE 10/23/24 10/23/24 implant (Nexplanon) levofloxacin 750 mg tablet 750 mg PO DAILY 4 days #4 t abs 10/25/24 sulfamethoxazole 800 1 tab PO BID 4 days #8 tabs 10/25/24 mg-trimethoprim 160 mg tablet (Bactrim DS) PHYSICAL EXAM AT DISCHARGE Vital Signs: Vital Signs x48h Temp Pulse Resp BP Pulse Ox 10/25/24 08:29 98.2 F 85 18 111/65 99 General Appearance: positive No acute distress and Alert; negative Anxious Eyes Bilateral: positive Normal inspection, PERRL and EOMI ENT: positive Pharynx nml, No signs of dehydration and Other (improved drainage of bilateral ears, improved erythema noted) Neck: positive Nml inspection and Thyroid nml Respiratory: positive Chest non-tender and No respiratory distress; negative Wheezes, Rales or Rhonchi Cardiovascular: positive Regular rate & rhythm, No murmur and No gallop Peripheral Pulses: positive 2+ Abdomen: positive Non-tender and No organomegaly; negative Tenderness, Guarding, Hepatomegaly or Splenomegaly Back: positive Nml inspection; negative CVA tenderness (R) or CVA tenderness (L) Skin: positive Other (Bilateral facial rash noted, left worse than right, improving . Minimal swelling noted around left eye, improving. No proptosis, no pain with eye movements.) Extremities: positive Non-tender, Full ROM and No pedal edema Neurologic/Psychiatric: positive Oriented x3, Motor nml and Mood/affect nml LABS 10/25/24 05:37 10/25/24 05:37 DIAGNOSTIC IMAGING Diagnostic Imaging Results: Final report reviewed SEPSIS Current Stage of Sepsis: Resolved (Improving) Possible source of Sepsis: Skin/soft tissue FOLLOW UP Follow Up: Follow up with PCP. Follow up with ENT. Follow up with dermatology. TIME SPENT Time Spent in Discharge (Minutes): 35 Discharge Plan Discharge Patient Disposition: Home, Self Care Condition: Good Prescriptions: New sulfamethoxazole-trimethoprim [Bactrim DS] 800-160 mg tablet 1 tab PO BID 4 Days Qty: 8 0RF levofloxacin 750 mg tablet 750 mg PO DAILY 4 Days Qty: 4 0RF Continued mupirocin 2 APPLIC/GM ointment 1 applic topical BID 7 Days Qty: 50 0RF Nexplanon 68 mg implant 1 implant subdermal ONCE Activity Restrictions: Activity as Tolerated Diet: Regular Health Concerns: You came in because you are having drainage from your ears, you had skin breakdown around the ears, and then you had worsening redness of your entire face. These are all likely connected. We did do a CT scan to make sure that we were not missing any abscesses or collection of pus or an infection of the bone. This was negative. However, did show that you have a pretty extensive infection of your skin. We started you on strong IV antibiotics, for which you have completed a 3-day course. I am sending you home with 4 more days of 2 different antibiotics, Bactrim and levofloxacin. Please complete this course. Please call a primary care provider and follow-up within the next 1 to 2 weeks. You should also see an ENT, as well as a [employer] consultant for these recurrent infections. We are glad you are feeling better, thanks for allowing us to take care of you. Print Language: Finnish Patient Instructions: Cellulitis Dc Stand Alone Forms: PCP List"
== END 2024-10-25 14:11 | disposition home or self-care (01) | DRG 872 ==
LOC: ED 10:11 → MS2 12:20
PROVIDERS: ADMIT Internal Medicine; ATTEND Internal Medicine